=== PATIENT | female | born 1945 | race Caucasian/White ===

== ENCOUNTER → 2016-11-23 | Outpatient (CLI) | payer OTHER, MEDICARE ==
[~2016-11-23] MED LIST: IOPAMIDOL (ISOVUE-370) 150 ML BTL IV ONE
--- NOTE | 2016-11-23 23:18 | CT ---
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 History of aortic valve replacement and replacement of aortic root three years ago. TECHNIQUE: The patient received 90 mL of Isovue-370 intravenously, given by automated power machine injector. Multidetector helical CT was performed through the chest using dose reduction technology. I manipulated imaging data at the independent 3D computer workstation, and transferred angiographic images to PACS. Comparison: Compare CT pulmonary arteriogram of December 24, 2007. Findings: Right atrium is severely enlarged, worse than before. Contrast refluxes down the inferior vena cava into the hepatic veins. Right ventricle and left atrium are mildly enlarged. The left ve ntricle is normal in size. Metallic ring from prosthetic aortic valve is noted. The ascending aorta has been replaced and is now normal in size. The aortic arch and descending aorta are normal in siz e. 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 A mild diver ticulum of Ariesll measures 1.8 cm x 2.1 cm at the origin from the aorta. Pulmonary artery is norm al in size. Multiple wire sutures are found in the sternum. IMPRESSIONS 1. Surgical replacement of previously aneurysmal ascending aorta. Replaced aortic valve. 2. Severe dilatation of right atrium, compatible with tricuspid insufficiency. 3. Mild enlargement of left atrium and right ventricle. 4. 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
== END ==
LOC: FIMAGING 14:02
PROVIDERS: ATTEND Thoracic Surgery (Cardiothoracic Vascular Surgery)
DX: I07.1 Rheumatic tricuspid insufficiency (principal); I51.7 Cardiomegaly; I71.2 Thoracic aortic aneurysm, without rupture; Z95.2 Presence of prosthetic heart valve
CPT/HCPCS: 71275; Q9967

== ENCOUNTER 2016-12-16 07:55 | Inpatient (IN) | payer OTHER, MEDICARE ==
[2016-12-15 13:10] LABS: % IMMATURE GRANULYOCYTES 0.5 % (0.0-1.1); ABSOLUTE IMMATURE GRANULOCYTES 0.03 10^3/uL (0.00-0.10); ADD DIFF? NO; ADD MORPH? NO; ADD SCAN? NO; ATYPICAL LYMPHOCYTE FLAG 20 (0-99); FRAGMENT RBC FLAG 0 (0-99); HEMATOCRIT 45.7 % (38.0-47.0); HEMOGLOBIN 14.7 g/dL (12.6-16.3); LEFT SHIFT FLG 0 (0-99); LIPEMIA HEMOLYSIS FLAG 80 (0-99); MEAN CELL HEMOGLOBIN 26.9 pg (27.9-34.1); MEAN CELL HEMOGLOBIN CONCENTR. 32.2 g/dL (32.4-36.7); MEAN CELL VOLUME 83.5 fL (81.5-99.8); MEAN PLATELET VOLUME 11.1 fL (8.7-11.7); PLATELET CLUMPS FLAG 0 (0-99); PLATELET COUNT 250 10^3/uL (150-400); RED BLOOD CELL COUNT 5.47 10^6/uL (4.18-5.33); RED CELL DISTRIBUTION WIDTH 14.5 % (11.5-15.2)
[2016-12-15 13:31] LABS: ANION GAP 9 mEq/L (8-16); CALCIUM 9.7 mg/dL (8.5-10.4); CARBON DIOXIDE 26 mEq/l (22-31); CHLORIDE 107 mEq/L (97-110); CREATININE 0.6 mg/dL (0.6-1.0); GLOMERULAR FILTRATION RATE > 60; GLUCOSE 99 mg/dL (70-100); POTASSIUM 5.1 mEq/L (3.5-5.2); SODIUM 142 mEq/L (134-144)
[2016-12-15 13:45] LABS: HEMOGLOBIN A1C 6.3 % (4.0-6.0)
[2016-12-16] MEDS ORDERED: diphenhydrAMINE 25 MG CAP PO ONE ×2 (08:22→08:38)
[2016-12-16] MEDS ORDERED: DIAZEPAM 5 MG TAB PO ONE (08:22)
[2016-12-16] MEDS ORDERED: ASPIRIN EC 325 MG TAB PO ONE ×2 (08:22→08:39)
[2016-12-16] MEDS ORDERED: NS 1,000 ML IV ONE (08:22)
[2016-12-16] MEDS ORDERED: FAMOTIDINE 20 MG TAB PO ONE (08:22)
--- NOTE | 2016-12-16 08:32 | CPEKG ---
Heart Rate: 54 RR Interval: 1111 P-R Interval: 144 QRSD Interval: 96 QT Interval: 444 QTC Interval: 421 P [place]: 45 QRS [place]: 54 T Wave [place]: 26 EKG Severity - NORMAL ECG - EKG Impression: SINUS RHYTHM Electronically Signed By: Cullen Gee 16-Dec-2016 14:46:14
[2016-12-16] MEDS ORDERED: FAMOTIDINE 20 MG TAB ONE (08:38)
[2016-12-16] MEDS ORDERED: DIAZEPAM 5 MG TAB ONE (08:39)
[2016-12-16 08:54] LABS: % IMMATURE GRANULYOCYTES 0.5 % (0.0-1.1); ABSOLUTE IMMATURE GRANULOCYTES 0.03 10^3/uL (0.00-0.10); ADD DIFF? NO; ADD MORPH? NO; ADD SCAN? NO; ATYPICAL LYMPHOCYTE FLAG 10 (0-99); FRAGMENT RBC FLAG 0 (0-99); HEMATOCRIT 44.1 % (38.0-47.0); HEMOGLOBIN 14.4 g/dL (12.6-16.3); LEFT SHIFT FLG 0 (0-99); LIPEMIA HEMOLYSIS FLAG 80 (0-99); MEAN CELL HEMOGLOBIN 27.5 pg (27.9-34.1); MEAN CELL HEMOGLOBIN CONCENTR. 32.7 g/dL (32.4-36.7); MEAN CELL VOLUME 84.3 fL (81.5-99.8); MEAN PLATELET VOLUME 10.8 fL (8.7-11.7); PLATELET CLUMPS FLAG 0 (0-99); PLATELET COUNT 234 10^3/uL (150-400); RED BLOOD CELL COUNT 5.23 10^6/uL (4.18-5.33); RED CELL DISTRIBUTION WIDTH 14.3 % (11.5-15.2)
[2016-12-16] MEDS ORDERED: LIDOCAINE 1% 30 ML SDV ONE (09:14)
[2016-12-16 09:15] LABS: ANION GAP 8 mEq/L (8-16); CALCIUM 9.4 mg/dL (8.5-10.4); CARBON DIOXIDE 24 mEq/l (22-31); CHLORIDE 109 mEq/L (97-110); CHOLESTEROL 213 mg/dL (140-220); CHOLESTEROL/HDL RATIO 4.44 RATIO (1.00-4.44); CREATININE 0.6 mg/dL (0.6-1.0); GLOMERULAR FILTRATION RATE > 60; GLUCOSE 109 mg/dL (70-100); HIGH DENSITY LIPOPROTEIN 48 mg/dL (40-85); LOW DENSITY LIPOPROTEIN 144 mg/dL (80-100); MAGNESIUM 1.9 mg/dL (1.6-2.3); NON-HIGH DENSITY LIPOPROTEIN 165 mg/dL (90-129); POTASSIUM 4.3 mEq/L (3.5-5.2); SODIUM 141 mEq/L (134-144); TRIGLYCERIDE 106 mg/dL (35-135); VERY LOW DENSITY LIPOPROTEINS 21 mg/dL (8-25)
[2016-12-16] MEDS ORDERED: VERAPAMIL 5 MG/2 ML VIAL ONE (09:15)
[2016-12-16] MEDS ORDERED: fentaNYL 100 MCG/2 ML INJ ONE ×3 (09:15→15:42)
[2016-12-16] MEDS ORDERED: HEPARIN 10,000 UNIT/10 ML MDV ONE (09:15)
[2016-12-16] MEDS ORDERED: IOPAMIDOL (ISOVUE-370) 150 ML BTL IV ONE (09:15)
[2016-12-16] MEDS ORDERED: MIDAZOLAM 2 MG/2 ML VIAL ONE ×2 (09:15→11:07)
[2016-12-16 09:19] LABS: INR 2.14 (0.83-1.16); PROTIME(PATIENT) 24.1 SEC (12.0-15.0)
[2016-12-16] MEDS ORDERED: NITROGLYCERIN 0.4 MG BTL SL PRN (11:37)
[2016-12-16] MEDS ORDERED: OXYCODONE/APAP 5/325 TAB PO PRN (11:37)
[2016-12-16] MEDS ORDERED: ATROPINE SULFATE 1 MG/10 ML SYR IVP PRN (11:37)
[2016-12-16] MEDS ORDERED: ONDANSETRON 4 MG/2 ML VIAL IVP PRN (11:37)
[2016-12-16] MEDS ORDERED: HYDROCODONE/APAP 5/325 TAB PO PRN (11:37)
[2016-12-16] MEDS ORDERED: PHYTONADIONE 2.5 MG/2.5 ML ORAL UDL PO ONE (11:39)
--- NOTE | 2016-12-16 11:44 | PDDXCAT ---
Diagnostic Cath Note - . Date: 12/16/16 Cephalometric Tracer: Roldan - Procedure Access: right groin Procedure: left heart catheterization, coronary angiography, other (aortagram) - Materials Left Heart Cath size: 5F Left Heart Cath materials: standard multipack (JL4, JR4, pigtail) - Findings-Left Heart Catheterization LM: normal LAD: normal LCX: dominant: Normal RCA: Non: dominant normal - Findings-Right Heart Catheterization AO: Aortagram: step up with graft. No AI. Complications: Right and left radial artery spasm. Closure method: other (TR band bilateral radial artery. Angioseal right groin.) Assessment: Normal Cors Patient Problems: Problems Problem Status Diagnosed Atrial flutter Acute
[2016-12-16 13:10] LABS: HEMOGLOBIN A1C 6.1 % (4.0-6.0)
--- NOTE | 2016-12-16 15:05 | US ---
Bilateral Duplex/Doppler Carotid Sonography Clinical Indications: Preop open heart surgery. Technique: The cervical portions of the carotid and vertebral arteries were imaged and interrogated by color and pulsed Duplex/Doppler. Spectral analysis was performed. Findings: Right Carotid: Right CCA peak systolic velocity = 34 cm/sec Right ICA peak systolic velocity = 71 cm/sec Right ECA peak systolic velocity = 35 cm/sec Right ICA/CCA systolic velocity ratio = 2.0 No flow-limiting carotid stenosis. Mild calcified plaque involving the right carotid bulb and proxima l right internal carotid artery. Left Carotid: Left CCA peak systolic velocity = 45 cm/sec Left ICA peak systolic velocity = 93 cm/sec Left ECA peak systolic velocity = 25 cm/sec Left ICA/CCA systolic velocity ratio = 2.0 No flow-limiting carotid stenosis. Mild calcified plaque involving the left carotid bulb and proximal left internal carotid artery. Vertebral Arteries: Antegrade flow is shown by pulsed Doppler of each vertebral artery. Impression: 1. No evidence of flow-limiting carotid stenosis. 2. Mild atherosclerotic disease bilateral carotid bulbs. 3. Bilateral vertebral arteries are patent with antegrade flow. Measurement of carotid stenosis is based on velocity parameters that correlate the residual internal carotid diameter with [place] Symptomatic Carotid Endarterectomy Trial (NASCET) based stenosis levels.
--- NOTE | 2016-12-16 18:45 | DX ---
Chest, PA and Lateral Views, at 6:10 PM Clinical History: 70-year-old female with history of an aortic valve replacement and aortic root 3 ye ars ago for a thoracic aortic aneurysm and a history of rheumatic and mitral valve tricuspid insuffic iency. The patient is presenting preoperatively before heart surgery anticipated on 12/21/2016. Comparison Study: Report of CT imaging of the chest, and chest radiography dated 05/05/2008. Findings: Again noted are median sternotomy wires and an aortic valvuloplasty. The cardiac silhouette remains enlarged, and there is tortuosity of the aorta. There is no focal alveolar consolidation, pe ripheral interstitial edema, pneumothorax, or pleural effusion. The patient's arms obscure the anteri or and central mediastinal structures on the lateral view. There are some degenerative features of th e spine. Impression: Postoperative changes following prior aortic valvuloplasty with mild cardiomegaly and tho racic aortic tortuosity. There is no focal infiltrate, or evidence of congestive heart failure.
[2016-12-21] MEDS ORDERED: AMINOCAPROIC ACID 5 GM/20 ML VIAL IV ONE (06:00)
[2016-12-21] MEDS ORDERED: LIDOCAINE 1% 5 ML SDV ID PRN ×2 (06:00→07:42)
[2016-12-21] MEDS ORDERED: PHENYLEPHRINE HCL 50 MG in NS 250 ML IV ONE (06:00)
[2016-12-21] MEDS ORDERED: INSULIN REGULAR HUMAN 100 UNIT in NS 100 ML IV ONE (06:00)
[2016-12-21] MEDS ORDERED: ceFAZolin 2 GM/DEXTROSE 100 ML IV ONE (06:00)
[2016-12-21] MEDS ORDERED: NOREPINEPHRINE BITARTRATE 16 MG in NS 250 ML IV ONE (06:00)
[2016-12-21] MEDS ORDERED: NS 1,000 ML IV ONE (06:00)
[2016-12-21] MEDS ORDERED: CITRATE DEXTROSE SOLN 500 ML BAG MISC ONE (06:00)
[2016-12-21] MEDS ORDERED: MUPIROCIN 2% 22 GM OINT NS ONE (06:00)
[2016-12-21] MEDS ORDERED: niCARdipine/NACL 200 ML IV SCH (06:00)
[2016-12-21] MEDS ORDERED: SODIUM BICARBONATE 20 MEQ, LIDOCAINE 1% 10 ML in NORMOSOL-R 1,000 ML MISC ONE (06:00)
[2016-12-21] MEDS ORDERED: DOBUTamine/DEXTROSE 250 ML IV ONE (06:00)
[2016-12-21] MEDS ORDERED: DOBUTamine 500 MG in D5W 250 ML IV ONE (06:00)
[2016-12-21] MEDS ORDERED: MANNITOL 25% 12.5 GM/50 ML VIAL IV ONE (06:00)
[2016-12-21] MEDS ORDERED: CITRATE DEXTROSE SOLN 500 ML BAG ONE (06:49)
[2016-12-21] MEDS ORDERED: CALCIUM CHLORIDE 1 GM/10 ML INJ ONE (06:49)
[2016-12-21] MEDS ORDERED: ALBUMIN 5% 250 ML BOTTLE IV ONE (06:49)
[2016-12-21] MEDS ORDERED: PROTAMINE SULFATE 50 MG/5 ML VIAL IVP ONE (06:49)
[2016-12-21] MEDS ORDERED: POTASSIUM Cl (KCl) 20 MEQ/50 ML BAG IV ONE (06:50)
[2016-12-21] MEDS ORDERED: NA BICARBONATE 50 MEQ/50 ML VIAL ONE (06:50)
[2016-12-21] MEDS ORDERED: AMINOCAPROIC ACID 5 GM/20 ML VIAL ONE (06:50)
[2016-12-21] MEDS ORDERED: MILRINONE/DEXTROSE/100 ML BAG IV ONE (06:50)
[2016-12-21] MEDS ORDERED: DOPamine/DEXTROSE/250 ML BAG IV ONE (06:51)
[2016-12-21] MEDS ORDERED: LIDOCAINE 2% 100 MG/5 ML SYR IVP ONE (06:51)
[2016-12-21] MEDS ORDERED: ROCURONIUM 100 MG/10 ML VIAL ONE ×2 (06:51→10:27)
[2016-12-21] MEDS ORDERED: PHENYLEPHRINE 10 MG/ML SDV ONE (06:51)
[2016-12-21] MEDS ORDERED: ADENOSINE 6 MG/2 ML VIAL ONE (06:51)
[2016-12-21] MEDS ORDERED: methylPREDNISolone SOD SUCC 1 GM/8 ML VIAL ONE (06:51)
[2016-12-21] MEDS ORDERED: niCARdipine/NACL/200 ML BAG IV ONE (06:51)
[2016-12-21] MEDS ORDERED: MAGNESIUM SULFATE 1 GM/2 ML VIAL ONE (06:51)
[2016-12-21] MEDS ORDERED: AMIODARONE HCL 150 MG/3 ML VIAL ONE (06:51)
[2016-12-21] MEDS ORDERED: ceFAZolin 1 GM VIAL ONE (06:52)
[2016-12-21] MEDS ORDERED: HEPARIN 10,000 UNIT/10 ML MDV ONE (06:52)
[2016-12-21] MEDS ORDERED: fentaNYL 250 MCG/5 ML INJ ONE ×3 (06:57→10:18)
[2016-12-21] MEDS ORDERED: PROPOFOL 200 MG/20 ML VIAL ONE (06:59)
--- NOTE | 2016-12-21 07:04 | PDGENHP ---
History and Physical - Chief Complaint Severe TR/MR/Persistent AF - History of Present Illness 71F with h/o AVR and ascending aorta repair with severe MR, severe TR and persistent AF. Pt admits to SOB upon exertion and has limited her activity to avoid symptoms. Since last seen in clinic symptoms have not worsened. History Information - Allergies/Home Medication List Allergies/Adverse Reactions: No Known Allergies Allergy (Verified 12/05/16 12:51) Home Medications: ALPRAZOLAM [ALPRAZOLAM] 0.25 mg PO DAILY PRN 12/16/16 [Last Taken 12/15/16] Aspirin EC [Aspirin EC 81 mg (*)] 81 mg PO DAILY 12/16/16 [Last Taken 12/20/16 09:00] Atenolol [Atenolol] 12.5 mg PO HS 12/16/16 [Last Taken 12/19/16] Atenolol [Atenolol] 25 mg PO DAILY 12/16/16 [Last Taken 12/20/16 09:00] Escitalopram Oxalate [Lexapro] 10 mg PO DAILY 12/16/16 [Last Taken 12/20/16 09: 00] Losartan Potassium [Cozaar 50 mg (*)] 50 mg PO DAILY 12/16/16 [Last Taken ] Warfarin Sodium [Coumadin 2.5MG (*)] 2.5 mg PO SUTUTHFR@16 12/16/16 [Last Taken 12/17/16] Warfarin Sodium [Coumadin 5MG (*)] 5 mg PO MWF@16 12/16/16 [Last Taken 12/16/16] I have personally reviewed and updated: medical history, social history, surgical history - Past Medical History atrial fibrillation, hypertension Additional medical history: MR, TR, BAV (s/p replacement 2007), cardioversions - Surgical History Additional surgical history: AVR/ascending aortic repair (2007) - Social History Smoking Status: Former smoker Review of Systems Constitutional: Denies: chills, fever, recent illness Cardiac: Reports: palpitations. Denies: chest pain Respiratory: Reports: shortness of breath Gastrointestinal: Denies: vomitting, nausea Skin: Reports: no symptoms Neurological: Reports: anxiety Physical Exam Constitutional: no apparent distress, appears nourished, not in pain Eyes: anicteric sclera Ears, Nose, Mouth, Throat: hearing normal Cardiovascular: regular rate and rhythym, irregularly irregular Respiratory: no respiratory distress, clear to auscultation Gastrointestinal: soft, non-tender abdomen, tenderness Skin: warm, normal color, No mottled Neurologic: AAOx3, sensation intact bilaterally Psychiatric: interacting appropriately, not anxious, not encephalopathic, thought process linear Lab Data & Imaging Review 12/22/16 03:45 12/22/16 03:45 WBC 6.26 10^3/uL (3.80-9.50) 12/16/16 08:45 RBC 5.23 10^6/uL (4.18-5.33) 12/16/16 08:45 Hgb 14.4 g/dL (12.6-16.3) 12/16/16 08:45 Hct 44.1 % (38.0-47.0) 12/16/16 08:45 MCV 84.3 fL (81.5-99.8) 12/16/16 08:45 MCH 27.5 pg (27.9-34.1) L 12/16/16 08:45 MCHC 32.7 g/dL (32.4-36.7) 12/16/16 08:45 RDW 14.3 % (11.5-15.2) 12/16/16 08:45 Plt Count 234 10^3/uL (150-400) 12/16/16 08:45 MPV 10.8 fL (8.7-11.7) 12/16/16 08:45 Neut % (Auto) 64.3 % (39.3-74.2) 12/16/16 08:45 Lymph % (Auto) 22.8 % (15.0-45.0) 12/16/16 08:45 Crockett % (Auto) 9.6 % (4.5-13.0) 12/16/16 08:45 Eos % (Auto) 2.2 % (0.6-7.6) 12/16/16 08:45 Baso % (Auto) 0.6 % (0.3-1.7) 12/16/16 08:45 Nucleat RBC Rel Count 0.0 % (0.0-0.2) 12/16/16 08:45 Absolute Neuts (auto) 4.02 10^3/uL (1.70-6.50) 12/16/16 08:45 Absolute Lymphs (auto) 1.43 10^3/uL (1.00-3.00) 12/16/16 08:45 Absolute Monos (auto) 0.60 10^3/uL (0.30-0.80) 12/16/16 08:45 Absolute Eos (auto) 0.14 10^3/uL (0.03-0.40) 12/16/16 08:45 Absolute Basos (auto) 0.04 10^3/uL (0.02-0.10) 12/16/16 08:45 Absolute Nucleated RBC 0.00 10^3/uL (0-0.01) 12/16/16 08:45 Immature Gran % 0.5 % (0.0-1.1) 12/16/16 08:45 Immature Gran # 0.03 10^3/uL (0.00-0.10) 12/16/16 08:45 PT 24.1 SEC (12.0-15.0) H 12/16/16 08:45 INR 2.14 (0.83-1.16) H 12/16/16 08:45 Sodium 141 mEq/L (134-144) 12/16/16 08:45 Potassium 4.3 mEq/L (3.5-5.2) 12/16/16 08:45 Chloride 109 mEq/L (97-110) 12/16/16 08:45 Carbon Dioxide 24 mEq/l (22-31) 12/16/16 08:45 Anion Gap 8 mEq/L (8-16) 12/16/16 08:45 BUN 22 mg/dL (7-23) 12/16/16 08:45 Creatinine 0.6 mg/dL (0.6-1.0) 12/16/16 08:45 Estimated GFR > 60 12/16/16 08:45 Glucose 109 mg/dL (70-100) H 12/16/16 08:45 Hemoglobin A1c 6.1 % (4.0-6.0) H 12/16/16 08:45 Estim Average Glucose 128 mg/dL (68-126) H 12/16/16 08:45 Calcium 9.4 mg/dL (8.5-10.4) 12/16/16 08:45 Magnesium 1.9 mg/dL (1.6-2.3) 12/16/16 08:45 Triglycerides 106 mg/dL (35-135) 12/16/16 08:45 Cholesterol 213 mg/dL (140-220) 12/16/16 08:45 Cholesterol Risk Factr 1.0 (0.2-1.0) 12/16/16 08:45 LDL Cholesterol, Calc 144 mg/dL (80-100) H 12/16/16 08:45 LDL Risk Factor 1.0 (0.2-1.0) 12/16/16 08:45 VLDL Cholesterol 21 mg/dL (8-25) 12/16/16 08:45 Non-HDL Cholesterol 165 mg/dL (90-129) H 12/16/16 08:45 HDL Cholesterol 48 mg/dL (40-85) 12/16/16 08:45 LDL/HDL Ratio 3.00 RATIO (1.00-3.22) 12/16/16 08:45 Cholesterol/HDL Ratio 4.44 RATIO (1.00-4.44) 12/16/16 08:45 Patient ABO/Rh A NEGATIVE 12/16/16 11:20 Antibody Screen NEGATIVE 12/16/16 11:20 Visualized and Interpreted Chest x-ray results: Yes Chest X-Ray results: normal Assessment & Plan Assessment: MR/TR/PAF - MVR/TVR/CM 4
[2016-12-21] MEDS ORDERED: SKIN ADHESIVE (DERMABOND) 1 EACH TP ONE (07:10)
[2016-12-21] MEDS ORDERED: LR 1,000 ML IV ONE (07:42)
[2016-12-21] MEDS ORDERED: MIDAZOLAM 2 MG/2 ML VIAL ONE ×2 (07:48→07:51)
[2016-12-21 08:22] LABS: INR 1.1 (0.83-1.16); PROTIME(PATIENT) 14.1 SEC (12.0-15.0)
[2016-12-21] MEDS ORDERED: LABETALOL HCL 5 MG/ML 20 ML MDV ONE (10:03)
[2016-12-21] MEDS ORDERED: hydrALAZINE 20 MG/ML VIAL ONE (10:20)
[2016-12-21] MEDS ORDERED: epHEDrine SULFATE 10 MG/ML SYR ONE ×2 (10:31→11:15)
[2016-12-21] MEDS ORDERED: MINERAL OIL 10 ML VIAL TP ONE (15:23)
[2016-12-21] MEDS ORDERED: SUGAMMADEX SODIUM 200 MG/2 ML VIAL IVP ONE (15:57)
[2016-12-21] MEDS ORDERED: morphINE PF 5 MG/10 ML INJ ONE (15:57)
[2016-12-21] MEDS ORDERED: MAGNESIUM HYDROXIDE 30 ML UDCUP PO PRN (16:00)
[2016-12-21] MEDS ORDERED: ONDANSETRON DISINTEGRATING 4 MG TAB PO PRN (16:00)
[2016-12-21] MEDS ORDERED: LACTULOSE 20 GM/30 ML UDCUP PO PRN (16:00)
[2016-12-21] MEDS ORDERED: SODIUM CL NASAL 45 ML BTL EACHNARE PRN (16:00)
[2016-12-21] MEDS ORDERED: BISACODYL 10 MG SUPP PR PRN (16:00)
[2016-12-21] MEDS ORDERED: ALBUMIN 5% 250 ML IV PRN (16:00)
[2016-12-21] MEDS ORDERED: CEPACOL LOZENGE PO PRN (16:00)
[2016-12-21] MEDS ORDERED: INSULIN REGULAR HUMAN 100 UNIT in NS 100 ML IV SCH (16:00)
[2016-12-21] MEDS ORDERED: D50W 25 GM/50 ML SYR IVP PRN (16:00)
[2016-12-21] MEDS ORDERED: MAGNESIUM SULF 2 GM/WATER 50 ML IV ONE (16:00)
[2016-12-21] MEDS ORDERED: METOCLOPRAMIDE 10 MG/2 ML VIAL IVP PRN (16:00)
[2016-12-21] MEDS ORDERED: NS 1,000 ML IV SCH (16:00)
[2016-12-21] MEDS ORDERED: MEPERIDINE 25 MG/ML SYR IVP PRN (16:00)
[2016-12-21] MEDS ORDERED: ACETAMINOPHEN 650 MG SUPP PR PRN (16:00)
[2016-12-21 16:53] LABS: BASE EXCESS -5.2 mEq/L (-2.5-2.5); BICARBONATE 21 mEq/L (22-26); MEASURED OXYGEN SATURATION 87 % (92-95); PCO2 44 mmHg (34-38); PO2 59 mmHg (65-75); TCO2 22 mEq/L (23-27)
[2016-12-21 16:58] LABS: O2 CONCENTRATIION 94 % (0-100); P/F RATIO 63 RATIO
[2016-12-21] MEDS ORDERED: KETOROLAC 30 MG/1 ML SDV IVP ONE (17:00)
[2016-12-21] MEDS: POTASSIUM Cl (KCl) 50 ML IV PRN ×2 (17:07→17:35)
[2016-12-21 17:16] LABS: ADD DIFF? YES; ADD MORPH? NO; ADD SCAN? NO; ATYPICAL LYMPHOCYTE FLAG 0 (0-99); FRAGMENT RBC FLAG 20 (0-99); HEMATOCRIT 36.7 % (38.0-47.0); HEMOGLOBIN 12.1 g/dL (12.6-16.3); LEFT SHIFT FLG 80 (0-99); LIPEMIA HEMOLYSIS FLAG 80 (0-99); MEAN CELL HEMOGLOBIN 28.5 pg (27.9-34.1); MEAN CELL VOLUME 86.4 fL (81.5-99.8); MEAN PLATELET VOLUME 11.3 fL (8.7-11.7); PLATELET CLUMPS FLAG 0 (0-99); PLATELET COUNT 77 10^3/uL (150-400); RED BLOOD CELL COUNT 4.25 10^6/uL (4.18-5.33); RED CELL DISTRIBUTION WIDTH 14.5 % (11.5-15.2)
[2016-12-21 17:51] LABS: PLATELET ESTIMATE DECREASED (ADEQ)
[2016-12-21 17:54] LABS: ELLIPTOCYTES 1+; POLYCHROMASIA 1+
--- NOTE | 2016-12-21 17:54 | CPEKG ---
Heart Rate: 80 RR Interval: 750 P-R Interval: 204 QRSD Interval: 88 QT Interval: 396 QTC Interval: 457 QRS [place]: 53 T Wave [place]: 53 EKG Severity - ABNORMAL ECG - EKG Impression: ATRIAL-PACED RHYTHM Electronically Signed By: Cleveland Kay 21-Dec-2016 19:53:43
[2016-12-21] MEDS: fentaNYL 100 MCG/2 ML INJ IVP PRN ×3 (20:46→22:20)
[2016-12-21] MEDS: MUPIROCIN 2% 22 GM OINT NS SCH (21:15)
[2016-12-21] MEDS: ceFAZolin 2 GM in D5W 100 ML IV SCH (21:56)
[2016-12-21] MEDS ORDERED: ceFAZolin 2 GM/DEXTROSE 100 ML IV SCH (22:00)
[2016-12-21] MEDS: ONDANSETRON 4 MG/2 ML VIAL IVP PRN (22:14)
[2016-12-21] MEDS: KETOROLAC 15 MG/1 ML SDV IVP SCH (22:50)
[2016-12-22] MEDS: fentaNYL 100 MCG/2 ML INJ IVP PRN ×2 (00:47→02:12)
[2016-12-22] MEDS: HYDROCODONE/APAP 5/325 TAB PO PRN ×6 (03:51→22:35)
[2016-12-22 04:02] LABS: ANION GAP 7 mEq/L (8-16); CALCIUM 7.8 mg/dL (8.5-10.4); CARBON DIOXIDE 23 mEq/l (22-31); CHLORIDE 118 mEq/L (97-110); CREATININE 0.6 mg/dL (0.6-1.0); GLOMERULAR FILTRATION RATE > 60; GLUCOSE 112 mg/dL (70-100); POTASSIUM 3.7 mEq/L (3.5-5.2); SODIUM 148 mEq/L (134-144)
[2016-12-22 04:03] LABS: % IMMATURE GRANULYOCYTES 0.9 % (0.0-1.1); ABSOLUTE IMMATURE GRANULOCYTES 0.15 10^3/uL (0.00-0.10); ADD DIFF? NO; ADD MORPH? NO; ADD SCAN? NO; ATYPICAL LYMPHOCYTE FLAG 0 (0-99); FRAGMENT RBC FLAG 0 (0-99); HEMATOCRIT 31.9 % (38.0-47.0); HEMOGLOBIN 10.3 g/dL (12.6-16.3); LEFT SHIFT FLG 50 (0-99); LIPEMIA HEMOLYSIS FLAG 80 (0-99); MEAN CELL HEMOGLOBIN 27.3 pg (27.9-34.1); MEAN CELL HEMOGLOBIN CONCENTR. 32.3 g/dL (32.4-36.7); MEAN CELL VOLUME 84.6 fL (81.5-99.8); MEAN PLATELET VOLUME 10.9 fL (8.7-11.7); PLATELET CLUMPS FLAG 0 (0-99); PLATELET COUNT 55 10^3/uL (150-400); RED BLOOD CELL COUNT 3.77 10^6/uL (4.18-5.33); RED CELL DISTRIBUTION WIDTH 15.2 % (11.5-15.2)
[2016-12-22] MEDS: POTASSIUM Cl (KCl) 50 ML IV PRN ×2 (04:17→04:52)
[2016-12-22 04:18] LABS: INR 1.57 (0.83-1.16); PROTIME(PATIENT) 18.8 SEC (12.0-15.0)
[2016-12-22] MEDS: KETOROLAC 15 MG/1 ML SDV IVP SCH ×4 (04:28→22:34)
[2016-12-22] MEDS: ceFAZolin 2 GM in D5W 100 ML IV SCH ×3 (04:55→22:35)
[2016-12-22] MEDS ORDERED: HEPARIN 5,000 UNIT/0.5 ML SYR SC SCH (06:00)
--- NOTE | 2016-12-22 07:14 | SOAPPROG ---
SOAP Progress Note Assessment/Plan: POD #1: Reoperation MV replacement, TV repair, Aguiar-Maze IV Severe MR/TR s/p MV replacement/TV repair. Weaned from CPB on dobutamine without need for blood product transfusions. A-paced due to slow JR. - CTs to bulb suction - d/c FC/AL - SQ heparin for DVT prophylaxis once platelets recover to 100 - BB contraindicated d/t rhythm issues - OOB/ambulation Long standing persistent AF s/p Aguiar-Maze IV - Continue AP for slow JR. Possible PPM insertion this admission if no resolution. Ok for PCU status but pt must stay in ICU for external pacer management. - Plan for Coumadin goal 2-3 once PPM plan determined Acute blood loss anemia - No blood transfusions required - Monitor H/H, CT output h/o remote bioprosthetic AVR with ascending aortic replacement - Stable Anxiety/depression - Continue home meds 12/22/16 08:59 Subjective: Thirsty. Pain well-controlled. No N/V/abdominal pain. Objective: Vital Signs Temp Pulse Resp BP Pulse Ox 36.7 C 80 17 107/72 97 12/22/16 06:00 12/22/16 06:00 12/22/16 06:00 12/22/16 06:00 12/22/16 06:00 Laboratory Results 12/22/16 03:45 12/22/16 03:45 12/21/16 12/22/16 12/23/16 05:59 05:59 05:59 Intake Total 1303 Output Total 2470 Balance -1167 PT 18.8 SEC (12.0-15.0) H 12/22/16 03:45 INR 1.57 (0.83-1.16) H 12/22/16 03:45 Physical Exam - Physical Exam General Appearance: WD/WN, alert, no apparent distress EENT: No scleral icterus (R), No scleral icterus (L) Neck: normal inspection Respiratory: lungs clear, normal breath sounds Cardiac/Chest: other (A-paced d/t JR) Abdomen: non-tender, soft, No distended Skin: normal color, warm/dry Extremities: No pedal edema Neuro/Psych: no motor/sensory deficits, alert, normal mood/affect, oriented x 3 ICD10 Worksheet Patient Problems: Problems Problem Status Onset Atrial flutter Acute
[2016-12-22] MEDS: MUPIROCIN 2% 22 GM OINT NS SCH ×2 (08:43→23:05)
[2016-12-22] MEDS: ASPIRIN EC 81 MG TAB PO SCH (08:43)
[2016-12-22] MEDS: ESCITALOPRAM OXALATE 10 MG TAB PO SCH (08:43)
--- NOTE | 2016-12-22 12:42 | GOP ---
[f rep st] OPERATIVE REPORT DATE OF OPERATION: 12/21/2016 SURGEON: Moi Carl DO PREOPERATIVE DIAGNOSIS: 1. Class 3 congestive heart failure with severe mitral insufficiency, severe tricuspid insufficienc y. 2. Persistent atrial fibrillation. 3. Status post previous aortic root replacement with a bioprosthetic root. POSTOPERATIVE DIAGNOSIS: 1. Class 3 congestive heart failure with severe mitral insufficiency, severe tricuspid insufficienc y. 2. Persistent atrial fibrillation. 3. Status post previous aortic root replacement with a bioprosthetic root. PROCEDURE PERFORMED: 1. Left common femoral artery cannulation with subsequent primary repair. 2. Reoperation, mitral valve replacement with a #25 Magna bioprosthesis. 3. Tricuspid valve annuloplasty with a #34 Purvis annuloplasty ring. 4. Complete left and right Aguiar maze procedure with radiofrequency and cryoablation with testing. FINDINGS: DESCRIPTION OF PROCEDURE: The patient was consented for symptomatic mitral and tricuspid insufficie ncy with worsening dyspnea on exertion and class 3 congestive heart failure symptoms. She had had a n aortic root performed with a magna valve inside a conduit for aortic aneurysm and bicuspid aortic valve. She was consented for surgery, brought to the operating room, intubated, and monitoring line s were placed in a sterile classical manner. Because the pericardium had not been closed from the p rior operation and she had marked right ventricular and right atrial enlargement which was adherent to the back of the sternum on CT, we elected to expose the left common femoral artery and vein. The y were excellent quality vessels without plaque. Pursestring sutures were placed in both vessels. We then proceeded to sternotomy with an oscillating saw, leaving the sternal wires on the posterior table for protection. We then removed the wires and gently the posterior plate. It becam e evident that the right ventricle was densely adherent to the back of the sternum, and any attempt to try to dissect it resulted in potential serious cardiac injury to the right ventricle. We then h eparinized the patient and cannulated the left common femoral artery with the Seldinger technique, u tilizing a 17-Slovenian cannula without difficulty over a guide wire which was visualized in the descen ding thoracic aorta on transesophageal echo. We then placed a wire into the common vein into the koo perior vena cava, and dilated the access sheath. However, the large dilation sheath met resistance at approximately 10 cm despite having the wire in place. I elected not to push it any harder and ca ncelled the common femoral vein cannulation, and closed that with a suture. I then decided to gentl y try to dissect the heart out, at least with arterial access, and we were able to safely dissect it without any RV injury, subsequently placing retractor. I then dissected out the entire right side and ascending aorta which had a graft which was densely adherent, taking our time utilizing cautery. We then also freed up the inferior wall as well as the coronary sinus to where we hoped to be able to perform cryoablation based on heart catheterization. Bicaval cannulations were placed with tape s, and antegrade cardioplegia catheter was placed. Cardiopulmonary bypass was begun. The aorta was cross clamped with antegrade cardioplegia and topical hypothermia as well as systemic cooling. Bef ore arresting the heart, I did test for GPs on the right side, and found 1 at approximately R9 which was ablated successfully. I was unable to do the left side due to the dense adhesions and reluctan ce to dissect out that side because of additional bleeding that would be encountered. I also tested for exit block and found that the right inferior pulmonary vein was conducting, although the middle and superior were not for no obvious reason. We then arrested the heart as stated, and opened the left atrium through the right superior pulmonary vein. I then cryoablated the remainder of the righ t PVI and then the entire left PVI as well as the dome and lesion with a sponge placed be hind the heart to prevent esophageal injury as well as pointing the KHADIJAH back. I then did the isthmu s lesion, connecting it with the right inferior pulmonary vein to my satisfaction. I also ablated i nto the atrial appendage from the right superior pulmonary vein, and then over sewed the appendage f rom the inside with a double-layer closure, being confident that it was occluded, avoiding circumfle x vessel. I then evaluated the mitral valve. It should be noted that the left atrial chamber was m arkedly enlarged of a chronic nature. It appeared to be a fibroelastic valve with ruptured chordae to the anterior leaflet. It was very friable tissue of poor quality and it was a relatively small v alve, also complicated by the fact that the aortic prosthesis made visualization of the lateral trig one extremely difficult. For that reason, I felt that the safest approach would be a chordal sparin g mitral valve replacement, utilizing part of the anterior leaflet as the anulus in a site that was difficult to visualize to try to prevent any sort of perivalvular leak. Again, visualization there was extremely hard because of the large size of her heart. I was able to place circumferential sutu res, preserving the anterior leaflet at 3 and 9 o'clock, and placed a 25 mm valve which was actually quite tight fit, but I thought an appropriate size for her. It was seated without difficulty. Anuja ting distention of the ventricle revealed no obvious perivalvular leak. Rewarming was begun while t he left atrium was closed. It should be noted CO2 was infused throughout the procedure. I then vasquez alejandro the patient in deep Trendelenburg after de-airing the ventricle and atrium as much as I could fr om that site, and then removed the cross-clamp with suction on the ascending aortic vent. Spontaneo us cardiac activity was noted to resume. We secured the caval tapes and opened the right atrium in a vertical fashion as part of a Aguiar IV, and completed the isthmus lesion utilizing cryoablation to a pproximately 2 o'clock, connecting it to the free wall lesion. We then did a free wall ablation, st aying high away from the sinus node, connecting that to the appendage. We also did superior and inf erior vena caval ablations, staying well away from the sinus node on the posterior wall of the super ior vena cava. I then placed retractors and put circumferential sutures in the tricuspid anulus. I t was markedly dilated and had severe regurgitation with distention with saline. I then sized the p atient for a 34 ring which was sutured in place with cor knots without difficulty. There was still some regurgitation at the commissure of the 2 leaflets, which I approximated with a sort of stitch because of prolapse of that area close to the anulus. This eliminated the majority of any regurgitation being almost nil with distention of the right ventricle. The right atrium was closed while the heart continued to beat. I placed a and V wires, and atrial paced the patient. We then watched the patient for air, de-airing through the aortic vent and ventilating, distending the heart and stabbing the apex with an 18-gauge needle. When no further air was identified, the patient was easily weaned from bypass. The mitral valve was well seated. There was central regurgitation cons istent with a pericardial valve, but trace perivalvular needle holes type bleeding only, but no sign ificant perivalvular leakage noted with magnification as well. The patient was then weaned from byp ass. The heparin was reversed with protamine. All bleeding sites were controlled. One mediastinal and 2 pleural tubes were placed. There was no thymic fat or pericardium remaining. The chest was closed in a standard fashion. The left common femoral artery cannula had been removed and oversewn. She had Doppler pulses in the foot. All wounds were closed in a standard fashion. She was return ed to ICU extubated, in stable condition. /[id number]/MODL
[2016-12-22] MEDS: ONDANSETRON 4 MG/2 ML VIAL IVP PRN (15:55)
[2016-12-22] MEDS: SENNOSIDES/DOCUSATE SODIUM TAB PO SCH (20:28)
[2016-12-23 04:45] LABS: INR 1.28 (0.83-1.16)
[2016-12-23 04:54] LABS: % IMMATURE GRANULYOCYTES 0.6 % (0.0-1.1); ABSOLUTE IMMATURE GRANULOCYTES 0.12 10^3/uL (0.00-0.10); ADD DIFF? NO; ADD MORPH? NO; ADD SCAN? NO; ATYPICAL LYMPHOCYTE FLAG 0 (0-99); FRAGMENT RBC FLAG 0 (0-99); HEMATOCRIT 26.9 % (38.0-47.0); HEMOGLOBIN 8.7 g/dL (12.6-16.3); LEFT SHIFT FLG 20 (0-99); LIPEMIA HEMOLYSIS FLAG 80 (0-99); MEAN CELL HEMOGLOBIN 28.1 pg (27.9-34.1); MEAN CELL HEMOGLOBIN CONCENTR. 32.3 g/dL (32.4-36.7); MEAN CELL VOLUME 86.8 fL (81.5-99.8); MEAN PLATELET VOLUME 13.9 fL (8.7-11.7); PLATELET CLUMPS FLAG 0 (0-99); PLATELET COUNT 74 10^3/uL (150-400); RED CELL DISTRIBUTION WIDTH 15.8 % (11.5-15.2)
[2016-12-23] MEDS: KETOROLAC 15 MG/1 ML SDV IVP SCH ×4 (05:16→19:05)
[2016-12-23] MEDS: ceFAZolin 2 GM in D5W 100 ML IV SCH (05:17)
[2016-12-23 05:28] LABS: ANION GAP 5 mEq/L (8-16); CALCIUM 8.7 mg/dL (8.5-10.4); CARBON DIOXIDE 26 mEq/l (22-31); CHLORIDE 106 mEq/L (97-110); GLOMERULAR FILTRATION RATE 55; GLUCOSE 130 mg/dL (70-100); POTASSIUM 4.9 mEq/L (3.5-5.2); SODIUM 137 mEq/L (134-144)
[2016-12-23] MEDS: ONDANSETRON 4 MG/2 ML VIAL IVP PRN ×2 (06:15→17:07)
--- NOTE | 2016-12-23 07:58 | SOAPPROG ---
SOAP Progress Note Assessment/Plan: Assessment: POD#2 Redo median sternotomy, MVR #25 Magna bioprosthesis, TVA #34 MC3 ring, Aguiar-Maze IV, preservation bioprosthetic AV Sx severe MR - s/p tissue MVR. Stable early postop course. Antithrombotic prophylaxis as per atrial fibrillation. Secondary TR - Amenable to annuloplasty. Antithrombotic prophylaxis as per MVR. Long standing persistent AF - s/p Aguiar-Maze IV w Apacing for JR, escape ~40. Izzy dysfx expected to resolve. Slow reinitiation of Coumadin until PPM needs clearer. Target INR 2-3. Duration TBD. Cont avoidance of BB. 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 Autodiuresing with stable renal fx. Heart failure regimen as appropriate. Acute blood loss anemia w thrombocytopenia - Stable. No blood transfusions required. No evidence active bleeding. Platelet suppression likely exacerbated by NSAID. No VTE prophylaxis while plt count < 100. Follow. H/O remote bioprosthetic AVR with ascending aortic replacement - No apparent valvular injury during MVR. Surveillance as per MVR. Anxiety/depression - Home meds resumed. Plan: D/C chest tubes. Reduce backup pacing to AAI 50. Increase activity and pulm toilet. Wean O2. Coumadin 2.5 mg today. 12/23/16 07:56 Subjective: Doing ok. Adequate analgesia. No acute concerns. Objective: Vital Signs Temp Pulse Resp BP Pulse Ox 36.8 C 59 L 22 H 110/54 L 97 12/23/16 07:43 12/23/16 07:43 12/23/16 07:43 12/23/16 07:43 12/23/16 07:43 Laboratory Results 12/23/16 04:28 12/23/16 04:28 12/22/16 12/23/16 12/24/16 05:59 05:59 05:59 Intake Total 1303 3071 Output Total 2470 1685 Balance -1167 1386 PT 16.0 SEC (12.0-15.0) H 12/23/16 04:28 INR 1.28 (0.83-1.16) H 12/23/16 04:28 Remains Apaced. Underlying rhythm junct escape 40s. SBPs > 100 held with backup rate of 50. CXR-> drains in good position, no pulm vasc congestion, no pl eff, mild bibasilar atelectasis R>L, prominent bowel gas. CTOP at removal criteria. I>O but overall -1kg. Labs ok. Dip in H/H likely reflects + Is (ie. dilutional) Physical Exam - Physical Exam General Appearance: alert, no apparent distress Respiratory: lungs clear, other (Blakes x 3 to bulb suction, serosang drainage. Heri #3 80cc since OOB. Blakes #1,2 removed without incident.) Cardiac/Chest: regular rate, rhythm (paced), other (Sternum grossly stable. Sternotomy and left groin CDI) Abdomen: non-tender, soft Skin: warm/dry Extremities: other (no visible edema) ICD10 Worksheet Patient Problems: Problems Problem Status Onset S/P ablation of atrial fibrillation Acute S/P mitral valve replacement with bioprosthetic valve Acute S/P tricuspid valve repair Acute H/O aortic valve replacement with tissue graft Chronic H/O ascending aorta repair Chronic Atrial flutter Acute
[2016-12-23] MEDS: SENNOSIDES/DOCUSATE SODIUM TAB PO SCH ×2 (08:07→21:25)
[2016-12-23] MEDS: ESCITALOPRAM OXALATE 10 MG TAB PO SCH (08:07)
[2016-12-23] MEDS: HYDROCODONE/APAP 5/325 TAB PO PRN ×2 (08:08→21:29)
[2016-12-23] MEDS: ASPIRIN EC 81 MG TAB PO SCH (08:09)
[2016-12-23] MEDS: MUPIROCIN 2% 22 GM OINT NS SCH (11:38)
[2016-12-23] MEDS: WARFARIN SODIUM 2.5 MG TAB PO SCH (17:08)
[2016-12-23] MEDS: traMADol 50 MG TAB PO PRN (22:54)
[2016-12-24 06:17] LABS: % IMMATURE GRANULYOCYTES 0.7 % (0.0-1.1); ADD DIFF? NO; ADD MORPH? NO; ADD SCAN? NO; ATYPICAL LYMPHOCYTE FLAG 0 (0-99); FRAGMENT RBC FLAG 0 (0-99); HEMATOCRIT 23.6 % (38.0-47.0); HEMOGLOBIN 7.6 g/dL (12.6-16.3); LEFT SHIFT FLG 20 (0-99); LIPEMIA HEMOLYSIS FLAG 80 (0-99); MEAN CELL HEMOGLOBIN 27.6 pg (27.9-34.1); MEAN CELL HEMOGLOBIN CONCENTR. 32.2 g/dL (32.4-36.7); MEAN CELL VOLUME 85.8 fL (81.5-99.8); MEAN PLATELET VOLUME 12.6 fL (8.7-11.7); PLATELET CLUMPS FLAG 0 (0-99); PLATELET COUNT 85 10^3/uL (150-400); RED BLOOD CELL COUNT 2.75 10^6/uL (4.18-5.33); RED CELL DISTRIBUTION WIDTH 15.6 % (11.5-15.2)
[2016-12-24 06:36] LABS: ANION GAP 5 mEq/L (8-16); CALCIUM 8.6 mg/dL (8.5-10.4); CARBON DIOXIDE 26 mEq/l (22-31); CHLORIDE 104 mEq/L (97-110); CREATININE 0.9 mg/dL (0.6-1.0); GLOMERULAR FILTRATION RATE > 60; GLUCOSE 103 mg/dL (70-100); POTASSIUM 4.8 mEq/L (3.5-5.2); SODIUM 135 mEq/L (134-144)
[2016-12-24 06:43] LABS: INR 1.27 (0.83-1.16); PROTIME(PATIENT) 15.9 SEC (12.0-15.0)
[2016-12-24] MEDS: KETOROLAC 15 MG/1 ML SDV IVP SCH ×4 (07:23→22:51)
--- NOTE | 2016-12-24 07:29 | SOAPPROG ---
[facility] Progress Note Assessment/Plan: POD#3 Redo median sternotomy, MVR #25 Magna bioprosthesis, TVA #34 MC3 ring, Aguiar -Maze IV, preservation bioprosthetic AV Sx severe MR - s/p tissue MVR. Stable early postop course. Antithrombotic prophylaxis as per atrial fibrillation. Secondary TR - Amenable to annuloplasty. Antithrombotic prophylaxis as per MVR. Long standing persistent AF - s/p Aguiar-Maze IV w partial recovering of post-op sinus dysfunction. Continue AP at 50. Dr. Gee following, although PPM unlikely. Continue Coumadin with Target INR 2-3. Duration TBD. Cont avoidance of BB/AVB. 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 Autodiuresing with stable renal fx. Heart failure regimen as appropriate. Acute blood loss anemia w thrombocytopenia - Stable. No blood transfusions required. No evidence active bleeding. No VTE prophylaxis while plt count < 100. Follow. H/O remote bioprosthetic AVR with ascending aortic replacement - No apparent valvular injury during MVR. Surveillance as per MVR. Anxiety/depression - Home meds resumed. 12/24/16 14:10 Subjective: Overall feels well. Pain well-controlled. Tired. Objective: Vital Signs Temp Pulse Resp BP Pulse Ox 36.8 C 47 L 19 113/59 L 93 12/24/16 04:00 12/24/16 04:00 12/24/16 04:00 12/24/16 04:00 12/24/16 04:00 Laboratory Results 12/24/16 05:55 12/24/16 05:55 12/23/16 12/24/16 12/25/16 05:59 05:59 05:59 Intake Total 3071 700 Output Total 1685 30 Balance 1386 670 PT 15.9 SEC (12.0-15.0) H 12/24/16 05:55 INR 1.27 (0.83-1.16) H 12/24/16 05:55 Physical Exam - Physical Exam General Appearance: WD/WN, alert, no apparent distress EENT: No scleral icterus (R), No scleral icterus (L) Neck: normal inspection Respiratory: chest non-tender, lungs clear, normal breath sounds, No respiratory distress Cardiac/Chest: regular rate, rhythm, bradycardia, other (AP) Abdomen: non-tender, soft, No distended Skin: normal color, warm/dry Extremities: No pedal edema Neuro/Psych: no motor/sensory deficits, alert, normal mood/affect, oriented x 3 ICD10 Worksheet Patient Problems: Problems Problem Status Onset S/P ablation of atrial fibrillation Acute S/P mitral valve replacement with bioprosthetic valve Acute S/P tricuspid valve repair Acute H/O aortic valve replacement with tissue graft Chronic H/O ascending aorta repair Chronic Atrial flutter Acute
--- NOTE | 2016-12-24 08:47 | PDCARPN ---
Cardiology Progress Note Chief Complaint: Bradycardia Assessment/Plan: Assessment: 71-year-old female status post redo mitral valve surgery, tricuspid valve repair , right and left side Maze procedure. Was bradycardic post surgery requiring atrial pacing. Patient is known to our service. Dr. Carl asked me to see the patient to assess whether she needs a permanent pacemaker. Plan: Inhibition of atrial pacing reveals sinus rhythm between 45 to 50 beats per minute. Very likely patient will not need a pacemaker prior to discharge. Will monitor in the hospital on telemetry until discharge. Avoid AV av blocking agents at this time. 12/24/16 08:45 Subjective: Feels well, just back from PT, no complaints Reviewed/Discussed With: multidisciplinary team Time Spent With Patient: 15 minutes Objective: Vital Signs (8 Hrs) Temp Pulse Resp BP Pulse Ox 12/24/16 08:00 36.4 C 50 L 18 115/66 92 12/24/16 04:00 36.8 C 47 L 19 113/59 L 93 Intake/Output (24 Hrs) 12/22/16 12/23/16 12/24/16 11:59 11:59 11:59 Intake Total 1303 3071 700 Output Total 2860 1295 130 Balance -1557 1776 570 Intake: Oral (ml) 750 2200 700 IV Intake (ml) 100 IV Infused (ml) 553 771 Insulin Regular Human 100 23 13 unit In Ns 100 ml @ Per Protocol IV CONT ESAU Rx#: [id number] Ns 1,000 ml @ 25 mls/hr 470 758 IV CONT ESAU Rx#: [id number] niCARdipine/NACL 200 ml @ 60 Titrate IV CONT ESAU Rx#: [id number] Output: Urine (ml) 1800 900 Catheter 1800 Toilet 900 Chest Tube Drainage (ml) 1060 395 130 Location 1 Mediastinal 1045 Location 1 Right Pleural 5 145 Location 2 Mediastinal 5 140 Location 3 Left Pleural 5 110 130 Other: Weight 67 kg 76.1 kg Intake Quantity Yes Yes Sufficient Number of Voids Toilet 1 1 Result Diagrams: 12/24/16 05:55 12/24/16 05:55 Telemetry: Sinus rhythm with frequent PACs. Low voltage P waves best seen in inferior leads. ICD10 Worksheet Patient Problems: Problems Problem Status Onset S/P ablation of atrial fibrillation Acute S/P mitral valve replacement with bioprosthetic valve Acute S/P tricuspid valve repair Acute H/O aortic valve replacement with tissue graft Chronic H/O ascending aorta repair Chronic Atrial flutter Acute
[2016-12-24] MEDS: SENNOSIDES/DOCUSATE SODIUM TAB PO SCH ×2 (10:06→21:16)
[2016-12-24] MEDS: ESCITALOPRAM OXALATE 10 MG TAB PO SCH (10:07)
[2016-12-24] MEDS: ASPIRIN EC 81 MG TAB PO SCH (10:07)
[2016-12-24] MEDS ORDERED: WARFARIN SODIUM 2.5 MG TAB PO ONE (16:00)
[2016-12-24] MEDS: traMADol 50 MG TAB PO PRN (22:25)
[2016-12-25] MEDS: traMADol 50 MG TAB PO PRN ×2 (04:36→20:57)
[2016-12-25] MEDS: KETOROLAC 15 MG/1 ML SDV IVP SCH ×4 (04:57→22:51)
[2016-12-25 05:45] LABS: INR 1.77 (0.83-1.16); PROTIME(PATIENT) 20.7 SEC (12.0-15.0)
--- NOTE | 2016-12-25 09:03 | SOAPPROG ---
[facility] Progress Note Assessment/Plan: POD#4 Redo median sternotomy, MVR #25 Magna bioprosthesis, TVA #34 MC3 ring, Aguiar -Maze IV, preservation bioprosthetic AV Sx severe MR - s/p tissue MVR. Stable early postop course. Antithrombotic prophylaxis as per atrial fibrillation. Secondary TR - Amenable to annuloplasty. Antithrombotic prophylaxis as per MVR. Long standing persistent AF - s/p Aguiar-Maze IV w partial recovery of post-op sinus dysfunction. Continue AP at 50. Dr. Gee plan to place PPM tomorrow. Coumadin with Target INR 2-3 (held). 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 Lasix prn. Heart failure regimen as appropriate. Acute blood loss anemia w thrombocytopenia - Stable. No blood transfusions required. No evidence active bleeding. H/O remote bioprosthetic AVR with ascending aortic replacement - No apparent valvular injury during MVR. Surveillance as per MVR. Anxiety/depression - Home meds resumed. Subjective: Feels well. Upset a pacemaker is needed. Objective: Vital Signs Temp Pulse Resp BP Pulse Ox 36.6 C 58 L 18 111/53 L 93 12/25/16 08:00 12/25/16 08:00 12/25/16 08:00 12/25/16 08:00 12/25/16 08:00 Laboratory Results 12/24/16 05:55 12/24/16 05:55 12/24/16 12/25/16 12/26/16 05:59 05:59 05:59 Intake Total 700 150 Output Total 130 1010 Balance 570 -860 PT 20.7 SEC (12.0-15.0) H 12/25/16 05:05 INR 1.77 (0.83-1.16) H 12/25/16 05:05 Physical Exam - Physical Exam General Appearance: WD/WN, alert, no apparent distress EENT: No scleral icterus (R), No scleral icterus (L) Neck: normal inspection Respiratory: No respiratory distress Cardiac/Chest: other (JR) Abdomen: non-tender, soft, No distended Skin: normal color, warm/dry Extremities: No pedal edema Neuro/Psych: no motor/sensory deficits, alert, normal mood/affect, oriented x 3 ICD10 Worksheet Patient Problems: Problems Problem Status Onset S/P ablation of atrial fibrillation Acute S/P mitral valve replacement with bioprosthetic valve Acute S/P tricuspid valve repair Acute H/O aortic valve replacement with tissue graft Chronic H/O ascending aorta repair Chronic Atrial flutter Acute
[2016-12-25 09:11] LABS: HEMATOCRIT 24.2 % (38.0-47.0); HEMOGLOBIN 7.5 g/dL (12.6-16.3); MEAN CELL HEMOGLOBIN 27.1 pg (27.9-34.1); MEAN CELL VOLUME 87.4 fL (81.5-99.8); RED BLOOD CELL COUNT 2.77 10^6/uL (4.18-5.33); RED CELL DISTRIBUTION WIDTH 15.5 % (11.5-15.2)
[2016-12-25] MEDS: ESCITALOPRAM OXALATE 10 MG TAB PO SCH (09:17)
[2016-12-25] MEDS: ASPIRIN EC 81 MG TAB PO SCH (09:17)
[2016-12-25] MEDS: SENNOSIDES/DOCUSATE SODIUM TAB PO SCH ×2 (09:17→20:31)
--- NOTE | 2016-12-25 09:43 | PDCARPN ---
Cardiology Progress Note Chief Complaint: Offers no complaints, daughter in the room with her. Assessment/Plan: Assessment: 71-year-old female status post redo mitral valve surgery, tricuspid valve repair , right and left side Maze procedure. Was bradycardic post surgery requiring atrial pacing. Plan: Today is postoperative day 5, patient has junctional rhythm at rates between 30 and 35 beats per minute, sometimes even lower requiring atrial pacing. Unlikely that she will recover adequately to safely send home without permanent pacemaker. Procedure was reviewed with her and her daughter at length. Risks of the procedure including , cardiac tamponade, pneumothorax, infection, bleeding, deep venous thrombosis, pulmonary embolism etc were discussed with the patient. At the patient's request, I will also call her son who is flying back to [place] now, I will call him later in the afternoon. Nurse was present in the room for this discussion. Case was discussed with Dr. Moi Carl who agrees with plan. Procedure is scheduled for noon tomorrow. 12/25/16 09:41 Subjective: Feels well, offers no complaints Time Spent With Patient: 30 minutes Objective: Vital Signs (8 Hrs) Temp Pulse Resp BP Pulse Ox 12/25/16 08:00 36.6 C 58 L 18 111/53 L 93 12/25/16 04:00 36.5 C 50 L 15 145/71 H 96 Intake/Output (24 Hrs) 12/23/16 12/24/16 12/25/16 11:59 11:59 11:59 Intake Total 3071 700 150 Output Total 8765 759 1732 Balance 1776 570 -860 Intake: Oral (ml) 2200 700 150 IV Intake (ml) 100 IV Infused (ml) 771 Insulin Regular Human 100 13 unit In Ns 100 ml @ Per Protocol IV CONT ESAU Rx#: [id number] Ns 1,000 ml @ 25 mls/hr 758 IV CONT ESAU Rx#: [id number] Output: Urine (ml) 900 850 Toilet 900 850 Chest Tube Drainage (ml) 395 130 160 Location 1 Right Pleural 145 Location 2 Mediastinal 140 Location 3 Left Pleural 110 130 160 Other: Weight 67 kg 76.1 kg 76.3 kg Intake Quantity Yes Yes Sufficient Number of Voids Toilet 1 1 1 Result Diagrams: 12/25/16 08:56 12/24/16 05:55 Telemetry: While changing temporary pacing to 30 beats per minute, underlying rhythm is between 30 and 35 beats per minute, junctional rhythm, requires pacing intermittently even while underlying AAI pacing at 30 beats per minute. ICD10 Worksheet Patient Problems: Problems Problem Status Onset H/O ascending aorta repair Chronic H/O aortic valve replacement with tissue graft Chronic S/P mitral valve replacement with bioprosthetic valve Acute S/P tricuspid valve repair Acute S/P ablation of atrial fibrillation Acute Atrial flutter Acute
[2016-12-25] MEDS ORDERED: POTASSIUM CL 20 MEQ/15 ML UDCUP PO ONE (10:16)
[2016-12-25] MEDS: FUROSEMIDE 40 MG TAB PO SCH (15:42)
[2016-12-25] MEDS: HEPARIN 5,000 UNIT/0.5 ML SYR SC SCH ×2 (15:43→15:58)
[2016-12-25] MEDS ORDERED: ENOXAPARIN 80 MG/0.8 ML SYR SC ONE (16:30)
[2016-12-26] MEDS: ALPRAZolam 0.25 MG TAB PO PRN ×2 (02:47→21:51)
[2016-12-26 03:13] LABS: % IMMATURE GRANULYOCYTES 1.8 % (0.0-1.1); ABSOLUTE IMMATURE GRANULOCYTES 0.14 10^3/uL (0.00-0.10); ABSOLUTE NRBC COUNT 0.04 10^3/uL (0-0.01); ADD DIFF? NO; ADD MORPH? NO; ADD SCAN? NO; ATYPICAL LYMPHOCYTE FLAG 30 (0-99); FRAGMENT RBC FLAG 0 (0-99); HEMATOCRIT 23.8 % (38.0-47.0); HEMOGLOBIN 7.5 g/dL (12.6-16.3); LEFT SHIFT FLG 50 (0-99); LIPEMIA HEMOLYSIS FLAG 80 (0-99); MEAN CELL HEMOGLOBIN 27.7 pg (27.9-34.1); MEAN CELL HEMOGLOBIN CONCENTR. 31.5 g/dL (32.4-36.7); MEAN CELL VOLUME 87.8 fL (81.5-99.8); MEAN PLATELET VOLUME 11.2 fL (8.7-11.7); NRBC-AUTO% 0.5 % (0.0-0.2); PLATELET CLUMPS FLAG 0 (0-99); PLATELET COUNT 150 10^3/uL (150-400); RED BLOOD CELL COUNT 2.71 10^6/uL (4.18-5.33); RED CELL DISTRIBUTION WIDTH 15.4 % (11.5-15.2)
[2016-12-26 03:22] LABS: INR 1.96 (0.83-1.16); PROTIME(PATIENT) 22.4 SEC (12.0-15.0)
[2016-12-26 03:23] LABS: APTT 40.9 SEC (23.0-38.0)
[2016-12-26 03:31] LABS: ALANINE AMINOTRANSFERASE 32 IU/L (9-52); ALBUMIN 2.8 g/dL (3.5-5.0); ALKALINE PHOSPHATASE 60 IU/L (38-126); ANION GAP 4 mEq/L (8-16); ASPARTATE AMINOTRANSFERASE 42 IU/L (14-46); BILIRUBIN,TOTAL 0.8 mg/dL (0.1-1.4); CALCIUM 8.7 mg/dL (8.5-10.4); CARBON DIOXIDE 27 mEq/l (22-31); CHLORIDE 105 mEq/L (97-110); CREATININE 0.7 mg/dL (0.6-1.0); GLOMERULAR FILTRATION RATE > 60; GLUCOSE 102 mg/dL (70-100); POTASSIUM 4.6 mEq/L (3.5-5.2); SODIUM 136 mEq/L (134-144); TOTAL PROTEIN 5.2 g/dL (6.3-8.2)
[2016-12-26] MEDS ORDERED: ceFAZolin 2 GM/DEXTROSE 100 ML IV ONE ×2 (06:00→11:00)
[2016-12-26] MEDS ORDERED: BACITRACIN IRRIGATION/NS 50,000 UNITS/1,000 ML BTL IRR ONE (06:00)
[2016-12-26] MEDS ORDERED: NS 1,000 ML IV ONE (06:00)
[2016-12-26] MEDS: SENNOSIDES/DOCUSATE SODIUM TAB PO SCH (07:44)
[2016-12-26] MEDS: KETOROLAC 15 MG/1 ML SDV IVP SCH ×3 (07:53→16:59)
[2016-12-26] MEDS ORDERED: BUPIVACAINE 0.5% 30 ML SDV ONE (10:20)
[2016-12-26] MEDS ORDERED: MIDAZOLAM 2 MG/2 ML VIAL ONE (10:20)
[2016-12-26] MEDS ORDERED: fentaNYL 100 MCG/2 ML INJ ONE (10:20)
[2016-12-26] MEDS ORDERED: LIDOCAINE 1% 30 ML SDV ONE (10:20)
[2016-12-26] MEDS ORDERED: IOPAMIDOL (ISOVUE-300) 100 ML BTL IV ONE (10:21)
--- NOTE | 2016-12-26 11:09 | ECHO ---
[id number] + + [address] : : [place] [address] : : [phone] + + Adult Echocardiographic Report + -----+ :Name: JUNO POST WStudy Date: 12/26/2016 08:30 AM : : Hospital Admission Number: [id number] Location : 207: :: 1945 Gender: Female Height: 63 in : :Age: 71 yrs Race: WH,White Weight: 168 lb : :Reason For Study: Eval LV Fx : : BSA: 1.8 meters2 : :History: S/P MVR #25 Magna, TVA #34 ring, AVR in past, : :external pacer. : + -----+ MMode/2D Measurements \T\ Calculations IVSd: 0.83 cm LVIDd: 4.4 cm FS: 44.4 % Ao root diam: 2.3 cm LVPWd: 1.1 cm LVIDs: 2.4 cm EDV(Teich): 85.4 ml ACS: 1.1 cm ESV(Teich): 20.6 ml EF(Teich): 75.9 % LVOT diam: 1.9 cm LVOT area: 2.8 cm2 Normal Measurement Values: + + :LVIDd (3.5-5.7cm) IVSd (0.6-1.1cm) LVPWd (0.6-1.1cm) Aortic Root (2.0-3.7cm)Left Atrium (1.5-4.0cm): :LV Vol(d) (76-115ml) LV Vol(s) (29-48ml) Ejec Fraction (50-65%)PV Darrel (0.6- 1.2m/s) TV Darrel (0.4-1.0m/s) : :MV E Darrel (0.8-1.0m/s)MV A Darrel (0.3-1.0m/s)LVOT Darrel (0.7-1.2m/s) Asc Ao Darrel ( 0.9-1.8m/s) : + + Doppler Measurements \T\ Calculations MV E max darrel: MV V2 max: MV P1/2t max darrel: Ao V2 max: 217.5 cm/sec 247.0 cm/sec 214.5 cm/sec 244.3 cm/sec MV dec time: MV max PG: MV P1/2t: 111.3 msec Ao max P.42 sec 24.4 mmHg 23.9 mmHg MV V2 mean: MVA(P1/2t): 2.0 cm2 Ao mean P.1 cm/sec MV dec slope: 12.4 mmHg MV mean P.6 cm/sec2 Ao V2 mean: 8.5 mmHg 157.4 cm/sec MV V2 VTI: Ao V2 VTI: 63.7 cm 44.3 cm MVA(VTI): KORI(I,D): 1.3 cm2 0.90 cm2 LV V1 mean PG: SV(LVOT): 57.6 ml PA V2 max: TR max darrel: 2.6 mmHg 150.7 cm/sec 301.3 cm/sec LV V1 mean: PA max P.1 mmHg TR max P.0 cm/sec 36.3 mmHg LV V1 VTI: 20.3 cm RAP systole: 5.0 mmHg RVSP(TR): 41.3 mmHg Left Ventricle The left ventricle is normal in size. There is normal left ventricular wall thickness. The left ventricular ejection fraction is normal. Ejection Fraction = 75%. Septal wall motion consistent with external pacemaker activation. Right Ventricle The right ventricle is normal in size and function. Atria The left atrium is mild to moderately dilated. Right atrial size is normal. Mitral Valve There is a bioprosthetic mitral valve. The prosthetic mitral valve is well- seated. The MV mean PG is 8.5 mmHg. Tricuspid Valve There is a tricuspid valve ring. There is trace to mild tricuspid regurgitation. Right ventricular systolic pressure is 41mmHg. There is Doppler evidence for mild pulmonary hypertension. Aortic Valve There is a bioprosthetic aortic valve. The Ao mean PG is 12 mmHg, The Ao V2 max is 2.4 m/sec. Pulmonic Valve The pulmonic valve is normal in structure and function. Great Vessels The aortic root is normal size. Pericardium/Pleural There is no pericardial effusion. Conclusion A complete two-dimensional transthoracic echocardiogram was performed (2D, M-mode, Doppler and color flow Doppler). The left ventricular ejection fraction is normal. Ejection Fraction = 75%. Septal wall motion consistent with external pacemaker activation. The left atrium is mild to moderately dilated. There is a bioprosthetic mitral valve. The prosthetic mitral valve is well-seated. The MV mean PG is 8.5 mmHg. There is a tricuspid valve ring. There is trace to mild tricuspid regurgitation. Right ventricular systolic pressure is 41mmHg. There is Doppler evidence for mild pulmonary hypertension. There is a bioprosthetic aortic valve. The Ao mean PG is 12 mmHg, The Ao V2 max is 2.4 m/sec. There is no pericardial effusion. Final Reading Physician: Cullen Gee MD electronically signed on 12/26/2016 11:07 AM Ordering Physician: Dallas Gracia Performed By: Jesús Yates, NICHOCS
--- NOTE | 2016-12-26 13:08 | SOAPPROG ---
[facility] Progress Note Assessment/Plan: Assessment: POD#5 Redo median sternotomy, MVR #25 Magna bioprosthesis, TVA #34 MC3 ring, Aguiar-Maze IV, preservation bioprosthetic AV Sx severe MR - s/p tissue MVR. Stable early postop course. Antithrombotic prophylaxis as per atrial fibrillation. Secondary TR - Amenable to annuloplasty. Antithrombotic prophylaxis as per MVR. Long standing persistent AF - s/p Aguiar-Maze IV w Apacing for JR, escape ~40. No sig recovery of av fx and PPM implanted. Resumption of coumadin when cleared by EP. Target INR 2-3. Duration TBD. AF prophylaxis with BB. 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 Actively diuresing with stable renal fx. Ancillary heart failure regimen as appropriate. Acute blood loss anemia w thrombocytopenia - Stable. No blood transfusions required. Downward drift in H/H plateauing around 7/24. Dilutional component suspected as +7kg by weight. Transfusion only if sx. H/O remote bioprosthetic AVR with ascending aortic replacement - No apparent valvular injury during MVR. Surveillance as per MVR. Anxiety/depression - Home meds resumed. Plan: Remove TCPWs after back from PPM. Remove left pleural drain 1h post wire removal if no sig drainage. Cont BID diuresis. Cont SQ hep pending resumption Coumadin. Dispo - likely could go home 12/26/16 12:56 Subjective: Poor sleep last night and more tired than usual. Was able to walk 1 lap without leaning on side bar. Nervous about going home tomorrow but thinks will be ready by Wed. Interested in starting cardiac rehab by end of week. Objective: Vital Signs Temp Pulse Resp BP Pulse Ox 37.3 C 71 26 H 131/70 H 97 12/26/16 08:00 12/26/16 08:00 12/26/16 08:00 12/26/16 08:00 12/26/16 08:00 Laboratory Results 12/26/16 03:00 12/26/16 03:00 12/25/16 12/26/16 12/27/16 05:59 05:59 05:59 Intake Total 150 200 Output Total 1010 525 90 Balance -860 -325 -90 PT 22.4 SEC (12.0-15.0) H 12/26/16 03:00 INR 1.96 (0.83-1.16) H 12/26/16 03:00 PPM at noon. MAPs > 70. Stable suppl O2 req. CXR-> left pl space well drained, sm residual rt pl eff. Improving fluid balance. Left pleural drain output decreasing. H/H stable. INR rising. Physical Exam - Physical Exam General Appearance: alert, no apparent distress Respiratory: lungs clear (anteriorly), other (estrada x 1 to bulb suction, thin serosang drainage with fibrinous stranding in tube.) Cardiac/Chest: regular rate, rhythm (paced), other (Sternotomy CDI. A&V wires intact) Abdomen: non-tender, soft Skin: warm/dry Extremities: swelling (1+) ICD10 Worksheet Patient Problems: Problems Problem Status Onset S/P ablation of atrial fibrillation Acute S/P mitral valve replacement with bioprosthetic valve Acute S/P tricuspid valve repair Acute H/O aortic valve replacement with tissue graft Chronic H/O ascending aorta repair Chronic Atrial flutter Acute
--- NOTE | 2016-12-26 13:13 | CPEKG ---
Heart Rate: 74 RR Interval: 811 P-R Interval: 124 QRSD Interval: 100 QT Interval: 416 QTC Interval: 462 QRS [place]: 52 T Wave [place]: -18 EKG Severity - ABNORMAL ECG - EKG Impression: ATRIAL-PACED RYTHM/COMPLEXES Electronically Signed By: Luan Potts 26-Dec-2016 14:50:36
[2016-12-26] MEDS: FUROSEMIDE 40 MG TAB PO SCH ×2 (13:31→14:22)
[2016-12-26] MEDS: ESCITALOPRAM OXALATE 10 MG TAB PO SCH (14:22)
[2016-12-26] MEDS: ASPIRIN EC 81 MG TAB PO SCH (14:23)
[2016-12-26] MEDS: ACETAMINOPHEN 325 MG TAB PO PRN ×2 (15:38→21:50)
[2016-12-26] MEDS ORDERED: SENNOSIDES/DOCUSATE SODIUM TAB PO PRN (21:00)
[2016-12-26] MEDS ORDERED: LOSARTAN POTASSIUM 25 MG TAB PO SCH (21:00)
[2016-12-27] MEDS: HYDROCODONE/APAP 5/325 TAB PO PRN (00:12)
[2016-12-27 04:38] LABS: ABSOLUTE NRBC COUNT 0.03 10^3/uL (0-0.01); ADD DIFF? YES; ADD MORPH? NO; ADD SCAN? NO; ATYPICAL LYMPHOCYTE FLAG 30 (0-99); FRAGMENT RBC FLAG 0 (0-99); HEMATOCRIT 21.9 % (38.0-47.0); LEFT SHIFT FLG 70 (0-99); LIPEMIA HEMOLYSIS FLAG 80 (0-99); MEAN CELL HEMOGLOBIN 27.7 pg (27.9-34.1); MEAN CELL VOLUME 86.6 fL (81.5-99.8); NRBC-AUTO% 0.3 % (0.0-0.2); PLATELET CLUMPS FLAG 0 (0-99); PLATELET COUNT 171 10^3/uL (150-400); RED BLOOD CELL COUNT 2.53 10^6/uL (4.18-5.33); RED CELL DISTRIBUTION WIDTH 16.2 % (11.5-15.2)
[2016-12-27 04:48] LABS: INR 1.81 (0.83-1.16); PROTIME(PATIENT) 21.1 SEC (12.0-15.0)
[2016-12-27 04:52] LABS: ANION GAP 4 mEq/L (8-16); CALCIUM 8.3 mg/dL (8.5-10.4); CARBON DIOXIDE 28 mEq/l (22-31); CHLORIDE 104 mEq/L (97-110); CREATININE 0.6 mg/dL (0.6-1.0); GLOMERULAR FILTRATION RATE > 60; GLUCOSE 96 mg/dL (70-100); POTASSIUM 4.5 mEq/L (3.5-5.2); SODIUM 136 mEq/L (134-144)
[2016-12-27 05:20] LABS: ELLIPTOCYTES 1+; HYPOCHROMIA 1+; MACROCYTES 1+; PLATELET ESTIMATE ADEQUATE (ADEQ); POLYCHROMASIA 1+; TOXIC GRANULATION PRESENT
[2016-12-27] MEDS ORDERED: FUROSEMIDE 40 MG/4 ML VIAL IVP SCH (09:00)
--- NOTE | 2016-12-27 09:02 | CPEKG ---
Heart Rate: 66 RR Interval: 909 P-R Interval: 114 QRSD Interval: 92 QT Interval: 444 QTC Interval: 466 QRS [place]: 65 T Wave [place]: -18 EKG Severity - ABNORMAL ECG - EKG Impression: ATRIAL-PACED RHYTHM EKG Impression: BORDERLINE T ABNORMALITIES, DIFFUSE LEADS Electronically Signed By: Cullen Gee 27-Dec-2016 10:24:14
[2016-12-27] MEDS: ASPIRIN EC 81 MG TAB PO SCH (09:05)
[2016-12-27] MEDS: ESCITALOPRAM OXALATE 10 MG TAB PO SCH (09:05)
[2016-12-27] MEDS: ATENOLOL 25 MG TAB PO SCH (09:05)
[2016-12-27 09:24] LABS: HEMATOCRIT 27.2 % (38.0-47.0); HEMOGLOBIN 8.5 g/dL (12.6-16.3)
--- NOTE | 2016-12-27 09:27 | PDCARPN ---
Cardiology Progress Note Chief Complaint: SSS s/p PPM 12/26 Assessment/Plan: Assessment: 71-y/o F with PMH bioAVR with aortic root repair approximately 8 years ago with recurrent AF, severe MR/TR s/p redo median sternotomy, bioMVR, TVA, Aguiar-Maze IV , preservation bioprosthetic AV #. severe MR/AR: s/p bioMVR and TVA #. AF: s/p Aguiar-Maze IV #. Postop bradycardia: junctional rhythm with HR 30-35 and occasionally lower than that s/p PPM 12/26 await CXR arm precautions reviewed will need outpatient pacer clinic follow-up 12/27/16 09:28 Subjective: Denies any pain at pacer site. No dyspnea currently. Reviewed/Discussed With: other (Leena Burns, KILEY) Objective: Vital Signs (8 Hrs) Temp Pulse Resp BP Pulse Ox 12/27/16 09:10 85 L 12/27/16 07:39 98.7 F 60 18 145/74 H 96 12/27/16 04:00 98.6 F 61 17 148/80 H 96 Intake/Output (24 Hrs) 12/26/16 12/27/16 12/28/16 05:59 05:59 05:59 Intake Total 200 250 Output Total 525 460 Balance -325 -210 Intake: Oral (ml) 200 250 Output: Urine (ml) 250 300 Toilet 250 300 Chest Tube Drainage (ml) 275 160 Location 3 Left Pleural 275 160 Other: Weight 75.5 kg 74.7 kg Intake Quantity Yes Sufficient Number of Voids Toilet 1 2 Result Diagrams: 12/27/16 03:56 12/27/16 03:56 Telemetry: A-paced Echocardiogram: reviewed - Physical Exam Constitutional: no apparent distress, No general pain Eyes: PERRL, pale conjunctiva Ears, Nose, Mouth, Throat: moist mucous membranes Cardiovascular: regular rate and rhythm Respiratory: clear to auscultate bilat Gastrointestinal: normoactive bowel sounds, no tenderness Genitourinary: no suprapubic tenderness Skin: no rashes, no abrasions Neurologic: AAOx3 Psychiatric: cooperative, interactive ICD10 Worksheet Patient Problems: Problems Problem Status Onset H/O ascending aorta repair Chronic H/O aortic valve replacement with tissue graft Chronic S/P mitral valve replacement with bioprosthetic valve Acute S/P tricuspid valve repair Acute S/P ablation of atrial fibrillation Acute Atrial flutter Acute
--- NOTE | 2016-12-27 09:44 | SOAPPROG ---
[facility] Progress Note Assessment/Plan: Assessment: POD#6 Redo median sternotomy, MVR #25 Magna bioprosthesis, TVA #34 MC3 ring, Aguiar-Maze IV, preservation bioprosthetic AV Sx severe MR - s/p tissue MVR. Stable early postop course. Antithrombotic prophylaxis as per atrial fibrillation. Secondary TR - Amenable to annuloplasty. Antithrombotic prophylaxis as per MVR. Long standing persistent AF - s/p Aguiar-Maze IV w Apacing for JR, escape ~40. No sig recovery of av fx and PPM implanted yest. Resumption of coumadin okayed. Target INR 2-3. Duration TBD. AF prophylaxis with BB. 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 Actively diuresing with stable renal fx. Ancillary heart failure regimen as appropriate. Acute blood loss anemia w thrombocytopenia - Stable. No blood transfusions required. Downward drift in H/H plateauing around 05/29. Well tolerated. H/O remote bioprosthetic AVR with ascending aortic replacement - No apparent valvular injury during MVR. Surveillance as per MVR. Anxiety/depression - Home meds resumed. Plan: Repeat H/H ok and transfusion cancelled. Cont BID oral diuresis thru today. Coumadin as per home regimen. Cont Cozaar 25 mg hs. Restart Atenolol 25 mg qam. Inc activity. Dispo - likely could go home late today vs tomorrow. 12/27/16 09:40 Subjective: A bit foggy but feeling ok. No dizziness. Satisfactory analgesia. Ok for home if productive morning. Objective: Vital Signs Temp Pulse Resp BP Pulse Ox 37.1 C 60 18 145/74 H 85 L 12/27/16 07:39 12/27/16 07:39 12/27/16 07:39 12/27/16 07:39 12/27/16 09:10 Laboratory Results 12/27/16 09:18 12/27/16 03:56 12/26/16 12/27/16 12/28/16 05:59 05:59 05:59 Intake Total 200 250 Output Total 525 460 Balance -325 -210 PT 21.1 SEC (12.0-15.0) H 12/27/16 03:56 INR 1.81 (0.83-1.16) H 12/27/16 03:56 Remains Apaced. SBP on the rise and low dose Cozaar started last noc. Suppl O2 req down to 1.5 Lpm. Ongoing wt loss ~0.5kg daily. No visible edema. 0600 H/H of 05/27 not corroborated by patricia. - Pending Discharge Pending Discharge Within 24 Hours: Yes Pending Discharge Date: 12/28/16 Pending Discharge Time: 11:00 Physical Exam - Physical Exam General Appearance: alert, no apparent distress Respiratory: lungs clear (grossly) Cardiac/Chest: regular rate, rhythm, other (Sternotomy CDI) Abdomen: non-tender, soft Skin: warm/dry Extremities: other (no visible edema) ICD10 Worksheet Patient Problems: Problems Problem Status Onset S/P ablation of atrial fibrillation Acute S/P mitral valve replacement with bioprosthetic valve Acute S/P tricuspid valve repair Acute H/O aortic valve replacement with tissue graft Chronic H/O ascending aorta repair Chronic Atrial flutter Acute
[2016-12-27] MEDS: FUROSEMIDE 40 MG TAB PO SCH (10:31)
--- NOTE | 2016-12-27 10:51 | EPPROC ---
Electrophysiology Procedure Note: PROCEDURE PERFORMED: 1. Implantation of an A/V Pacemaker 2. Subclavian vein angiography 3. Fluoroscopy INDICATION: S/P aortic, tricuspid and mitral valve surgeries Bradycardia requiring pacing with underlying rhythm 25-35 bpm PROCEDURE NOTE: Patient presented to the cardiac catheterization laboratory in a fasting, post absorptive state. Cardiac label stitcher nurse administered moderate sedation. The left infraclavicular area was prepped and draped in the usual sterile fashion. Lidocaine plus bupivacaine was used for local anesthesia. Left subclavian venography was performed by injection of iodinated contrast into the left antecubital vein. This was done to assure patency of the vein and also to assess for any anatomical aberrations. Using a combination of blunt and sharp dissection and electrocautery, the dissection was carried down to the prepectoral fascia. A pocket was made in this anatomical plane. All bleeding was controlled with electrocautery. The pocket was packed with gauze soaked in antibiotic solution. Fluoroscopy was utilized during the entire procedure for venous access and placement of the leads. Using a direct stick technique the left extrathoracic axillary vein was accessed with 2 sticks using the modified Seldinger technique. Placement of the guidewires into the venous system was confirmed by low-pressure blood return and also by visualizing the guidewires advancing into the inferior vena cava. A purse string suture was applied around the guidewires. Two #7 Khmer sheaths were advanced under fluoroscopic guidance over the guidewire. An active fixation ventricular lead was advanced into the right ventricular apex and screwed in place. An active fixation atrial lead was advanced into the right atrial appendage and screwed in place. The peel away sheaths were removed. Pacing thresholds, sensing parameters and lead impedances were measured. There was no diaphragmatic stimulation at maximum output. The leads were sutured to the prepectoral fascia with 3 nonabsorbable sutures each. The pocket was again inspected for any bleeding. The leads were attached to the pacemaker securely. The pacemaker was inserted into the pocket and secured in place with a nonabsorbable suture. Fluoroscopy was performed in SCHMITZ and TAMAZIGHT planes to verify right-sided placement of the leads. Also fluoroscopy of the pacemaker pocket was performed. The pacemaker pocket was closed in 3 layers with absorbable monocryl sutures and bishop. Appropriate dressing was applied. The patient left the cardiac catheterization laboratory in stable condition. Serial Numbers: 1. Device: SJM Assurity MRI 2272 SN [id number] 2. Atrial Lead: SJM Tendril 45 SN [id number] 3. Ventricular Lead: SJM Tendril 52 SN [id number] Stimulation Thresholds & Impedance Measurements: 1. Atrial Lead 0.5 V 0.5 ms 529 ohm 2. Ventricular Lead 0.5 V 0.5 ms 772 ohm Zhen Pacing Parameters 1. Pacing mode: DDDR 2. Lower rate: 60 ppm 3. Upper tracking rate: 110 ppm 4. Upper sensor rate: 110 ppm Patient Problems: Problems Problem Status Onset H/O ascending aorta repair Chronic H/O aortic valve replacement with tissue graft Chronic S/P mitral valve replacement with bioprosthetic valve Acute S/P tricuspid valve repair Acute S/P ablation of atrial fibrillation Acute Atrial flutter Acute
[2016-12-27 14:33] LABS: POTASSIUM 4.6 mEq/L (3.5-5.2)
[2016-12-27] MEDS: POLYETHYLENE GLYCOL 3350 17 GM PKT PO PRN (15:14)
[2016-12-27] MEDS: WARFARIN SODIUM 2.5 MG TAB PO SCH (15:14)
[2016-12-27] MEDS: traMADol 50 MG TAB PO PRN (15:59)
[2016-12-27] MEDS ORDERED: MAGNESIUM CITRATE 300 ML BOTTLE PO ONE (17:15)
[2016-12-27] MEDS ORDERED: MAALOX/LIDO/HYOSC GI COCKTAIL 55 ML BOTTLE PO ONE (17:33)
[2016-12-27] MEDS ORDERED: diphenhydrAMINE 25 MG CAP PO ONE (20:50)
[2016-12-27] MEDS ORDERED: LOSARTAN POTASSIUM 50 MG TAB PO SCH (21:00)
[2016-12-27] MEDS: ALPRAZolam 0.25 MG TAB PO PRN (21:32)
[2016-12-28] MEDS: traMADol 50 MG TAB PO PRN ×2 (02:29→15:59)
[2016-12-28 05:50] LABS: POTASSIUM 4.4 mEq/L (3.5-5.2)
[2016-12-28 05:52] LABS: INR 1.74 (0.83-1.16); PROTIME(PATIENT) 20.4 SEC (12.0-15.0)
[2016-12-28 05:59] LABS: HEMOGLOBIN 6.8 g/dL (12.6-16.3)
[2016-12-28] MEDS ORDERED: FUROSEMIDE 20 MG/2 ML VIAL IVP ONE (07:19)
[2016-12-28 07:59] LABS: HEMATOCRIT 23.9 % (38.0-47.0); HEMOGLOBIN 7.5 g/dL (12.6-16.3); MEAN CELL HEMOGLOBIN 27.8 pg (27.9-34.1); MEAN CELL HEMOGLOBIN CONCENTR. 31.4 g/dL (32.4-36.7); MEAN CELL VOLUME 88.5 fL (81.5-99.8); RED BLOOD CELL COUNT 2.7 10^6/uL (4.18-5.33); RED CELL DISTRIBUTION WIDTH 16.4 % (11.5-15.2)
[2016-12-28] MEDS ORDERED: POTASSIUM CL 10 MEQ TAB PO ONE (08:00)
[2016-12-28] MEDS: ESCITALOPRAM OXALATE 10 MG TAB PO SCH (09:28)
[2016-12-28] MEDS: ASPIRIN EC 81 MG TAB PO SCH (09:28)
[2016-12-28] MEDS: ATENOLOL 25 MG TAB PO SCH (09:28)
[2016-12-28 11:40] LABS: COLOR COLORLESS; LEUKOCYTE ESTERASE,URINE NEGATIVE (NEGATIVE); NITRITE,URINE NEGATIVE (NEGATIVE)
[2016-12-28 11:51] LABS: BACTERIA TRACE /hpf (NONE SEEN)
[2016-12-28 11:52] LABS: MUCUS NONE SEEN /lpf (NONE-1+)
--- NOTE | 2016-12-28 13:04 | SOAPPROG ---
SOAP Progress Note Assessment/Plan: Assessment: POD#7 Redo median sternotomy, MVR #25 Magna bioprosthesis, TVA #34 MC3 ring, Aguiar-Maze IV, preservation bioprosthetic AV Sx severe MR - s/p tissue MVR. Stable early postop course. Antithrombotic prophylaxis as per atrial fibrillation. Secondary TR - Amenable to annuloplasty. Antithrombotic prophylaxis as per MVR. Long standing persistent AF - s/p Aguiar-Maze IV w Apacing for JR, escape ~40. No sig recovery of av fx and PPM implanted POD#5. Resumption of coumadin okayed. Target INR 2-3. Duration TBD. AF prophylaxis with BB. 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 Actively diuresing with stable renal fx. Ancillary heart failure regimen as appropriate. Acute blood loss anemia w thrombocytopenia - Stable. No blood transfusions required. Downward drift in H/H plateauing around 24. Well tolerated. FeSuppl x 2 wks. H/O remote bioprosthetic AVR with ascending aortic replacement - No apparent valvular injury during MVR. Surveillance as per MVR. Anxiety/depression - Home meds resumed. Plan: Switch to daily diuresis. Coumadin as per home regimen. Cont Cozaar 50 mg hs. Cont Atenolol 25 mg qam. Dispo - Ok for home. 12/28/16 13:00 Subjective: Feeling much better/clearer mentally than yest. Ambulating comfortably. +BM. Agreeable to go home. Objective: Vital Signs Temp Pulse Resp BP Pulse Ox 37.3 C 67 18 109/79 97 12/28/16 12:00 12/28/16 12:00 12/28/16 12:00 12/28/16 12:00 12/28/16 12:00 Laboratory Results 12/28/16 07:39 12/28/16 03:47 12/27/16 12/28/16 12/29/16 05:59 05:59 05:59 Intake Total 250 800 Output Total 460 Balance -210 800 PT 20.4 SEC (12.0-15.0) H 12/28/16 03:47 INR 1.74 (0.83-1.16) H 12/28/16 03:47 Apaced ARB inc to home dose with improved BP control. WBC sl elev. UA neg. H/H stable. Physical Exam - Physical Exam General Appearance: alert, no apparent distress Respiratory: crackles (bases) Cardiac/Chest: regular rate, rhythm, other (Sternum grossly stable. Sternotomy and Left groin incision CDI) Abdomen: normal bowel sounds, non-tender, soft Skin: warm/dry Extremities: swelling (trace) ICD10 Worksheet Patient Problems: Problems Problem Status Onset S/P ablation of atrial fibrillation Acute S/P mitral valve replacement with bioprosthetic valve Acute S/P tricuspid valve repair Acute H/O aortic valve replacement with tissue graft Chronic H/O ascending aorta repair Chronic Atrial flutter Acute
[2016-12-28 13:11] VITALS: BP 133/81; PULSE 63; RESP 22; TEMP 99; O2SAT 99
[2016-12-28] MEDS: POLYETHYLENE GLYCOL 3350 17 GM PKT PO PRN (15:59)
[2016-12-28] MEDS ORDERED: WARFARIN SODIUM 5 MG TAB PO SCH (16:00)
--- NOTE | 2016-12-28 16:22 | PDDCSUM ---
Discharge Summary Discharge Summary: DATE OF ADMISSION: 12/21/16 DATE OF DISCHARGE: 12/28/16 DISPOSITION: Home, self-care PRINCIPAL ADMISSION DIAGNOSES: 1. Severe mitral valve regurgitation. 2. Severe tricuspid valve regurgitation. 3. Longstanding persistent atrial fibrillation/flutter 4. Valvular cardiomyopathy PRINCIPAL DISCHARGE DIAGNOSES: 1. Status post mitral valve replacement with a bioprosthesis. 2. Status post tricuspid valve annuloplasty. 3. Status post CoxMaze IV surgical ablation of atrial fibrillation with amputation and oversew of the left atrial appendage. 4. Acute expected blood loss anemia with thrombocytopenia. 5. Postoperative sinus node dysfunction requiring placement of a dual chamber permanent pacemaker. HISTORY OF PRESENT ILLNESS: 71 yo female with myxomatous valvular heart disease associated with severe FRANCISCO, mild RVSD, mild PHTN, and increasingly symptomatic atrial arrhythmias admitted for elective valvular surgery with CoxMaze IV procedure. PERTINENT PAST MEDICAL HISTORY: 1. CAD excluded - by preop LHC showing left dominant coronary system with no angiographic evidence of disease. 2. Mild carotid artery disease bilateral bulbs - by preop ultrasound. 3. Long standing persistent atrial fibrillation - refractory to DC CVSN. Chronically anticoagulated with Coumadin. Target INR 2-3. Management per [facility] anticoagulation clinic. 4. Presence bioprosthetic aortic valve - s/p 23 mm bovine pericardial valve with ascending aortic replacement in 2007 for BAV with aneurysmal ascending aorta.. 5. HTN 6. Depression with anxiety. 7. Habitual THC user. MEDICATIONS ON ADMISSION: ASA 81 mg daily; Coumadin 5 mg MWF alternating with 2.5 mg rest of week; Cozaar 50 mg daily; Atenolol 25 mg qam and 12.5 mg qhs; Lexapro 10 mg daily: Alprazolam 0.25 mg daily prn anxiety ALLERGIES: NKDA CONSULTANTS: EP cardiology (Marlen) PROCEDURES/IMAGIN/15 (Meseret): Redo median sternotomy. Exposure left common femoral artery and vein. Cardiopulmonary bypass inflow via left common femoral artery. Lysis of epicardial adhesions. Mitral valve replacement with a 25 mm Purvis Magna bovine pericardial bioprosthesis. Tricuspid valve annuloplasty with a 34 mm Purvis MC3 ring. CoxMaze IV procedure using [employer]'s Isolator Synergy ablation system utilizing bipolar radiofrequency and cryothermy. Preservation of bioprosthetic aortic valve. Primary repair of femoral vessels after decannulation. 12/26 (Marlen): Transthoracic echocardiogram. 12/26 (Marlen): Implantation of a dual chamber [employer] [place] Assurity permanent pacemaker. Left deltopectoral groove. Mode DDDR. Lower rate 60 ppm ABBREVIATED HOSPITAL COURSE: Admitted on the day of surgery and taken to the OR. Peripherally cannulated as the right heart known to be dilated and found to be adherent to the back of the sternum. Scar tissue was freed without incident and a full Maze able to be completed. The mitral valve was small, with ruptured chordae to the anterior leaflet, and suboptimal exposure for repair due to the aortic prosthesis. A chordal sparing replacement was therefore undertaken and the new prosthesis seated without difficulty. The tricuspid valve was structurally normal with a dilated annulus amenable to annuloplasty. The entire procedure was well tolerated with postop KHADIJAH demonstrating restored valvular competence with preserved LV systolic fx, no AI, and no paravalvular leaks. Extubated in the OR and transferred to the ICU in hemodynamically stable condition. No vasoactive support, blood or blood products required. Postop course remarkable for prolonged sinus node dysfunction with junctional escape in the 30s-40s. Permanent pacemaker ultimately inserted on POD#5 and predominantly atrially paced thru discharge. Antithrombotic INR target increased to 2.5 x 3 months for surgical prophylaxis. Routine postop echo notable for reduced atrial dilatation with normalization of right chamber size as well as RV systolic fx. DISCHARGE CLINICAL INFORMATION: Sternum grossly stable. Sternotomy and left groin incision CDI, sutured, + Dermabond. HR 60s, Apaced. SBP 110s-130s. SpO2 86% RA rest, correcting to >94% on 1.5 Lpm. Wt ?8 kg above admission at 67 kilos. Hgb 7.5, HCT 23.9, Plt 218, Na 136, K 4.4, Cr 0.6, AST 42, ALT 32 Coumadin flow sheet: Target INR 2.5-3 x 3 mo, then 2-3. Date INR mg 12/23 1.28 2.5 12/24 1.27 0 12/25 1.77 2.5 12/26 1.96 0 12/27 1.81 2.5 12/28 1.74 5 DISCHARGE MEDICATIONS: As on admission with the following adjustments: Hold nightly Atenolol dose. NEW prescriptions: Lasix 20 mg daily until back to baseline weight and no swelling. Ferrous sulfate 325 mg daily x 2 weeks. Tramadol 50 mg q6-8hr prn incisional discomfort. Miralax 17 gm daily prn constipation. O2 continuously @ 2 Lpm, or as directed by SpO2. FOLLOW UP APPOINTMENTS: 1. Cardiology: with pacemaker clinic at [facility] on 01/03 at [address] Montilla in 4-6 weeks. Appointment to be established during surgical visit. 2. CV Surgery: with Dr Carl at [facility] on 01/03/17 at 12 noon. 3. Phase II Cardiac rehab orientation at [place] on 01/03 at 1:30pm FOLLOW UP TESTIN. PT/INR at [facility] anticoagulation clinic on 12/30 as directed. 2. Chest xray prior to surgical appointment
[2016-12-28] MEDS ORDERED: FERROUS SULFATE 325 MG TAB PO SCH (21:00)
== END 2016-12-28 17:04 | disposition home or self-care (01) | DRG 217 ==
LOC: UNDOADMIN 07:55 → F3N 07:55 → FCATH 08:20 → F2W 12-21 06:47 → EDSTATUS 12-21 08:15 → F2N 12-21 11:20 → F2W 12-23 11:23
PROVIDERS: ADMIT Thoracic Surgery (Cardiothoracic Vascular Surgery); ATTEND Thoracic Surgery (Cardiothoracic Vascular Surgery)
PROC: B2111ZZ Fluoroscopy of Multiple Coronary Arteries using Low Osmolar Contrast (ICD-10-PCS; 2016-12-16)
PROC: 4A023N7 Measurement of Cardiac Sampling and Pressure, Left Heart, Percutaneous Approach (ICD-10-PCS; 2016-12-16)
PROC: B2151ZZ Fluoroscopy of Left Heart using Low Osmolar Contrast (ICD-10-PCS; 2016-12-16)
PROC: 02UJ0JZ Supplement Tricuspid Valve with Synthetic Substitute, Open Approach (ICD-10-PCS; principal; 2016-12-21 08:31)
PROC: 02RG08Z Replacement of Mitral Valve with Zooplastic Tissue, Open Approach (ICD-10-PCS; principal; 2016-12-21 08:31)
PROC: 02570ZK Destruction of Left Atrial Appendage, Open Approach (ICD-10-PCS; principal; 2016-12-21 08:31)
PROC: B241ZZ4 Ultrasonography of Multiple Coronary Arteries, Transesophageal (ICD-10-PCS; principal; 2016-12-21 08:31)
PROC: 5A1221Z Performance of Cardiac Output, Continuous (ICD-10-PCS; principal; 2016-12-21 08:31)
PROC: 02H63JZ Insertion of Pacemaker Lead into Right Atrium, Percutaneous Approach (ICD-10-PCS; 2016-12-27)
PROC: 0JH606Z Insertion of Pacemaker, Dual Chamber into Chest Subcutaneous Tissue and Fascia, Open Approach (ICD-10-PCS; 2016-12-27)
PROC: 02HK3JZ Insertion of Pacemaker Lead into Right Ventricle, Percutaneous Approach (ICD-10-PCS; 2016-12-27)
DX: I34.0 Nonrheumatic mitral (valve) insufficiency (principal); I36.1 Nonrheumatic tricuspid (valve) insufficiency; I48.92 Unspecified atrial flutter; I48.2 Chronic atrial fibrillation; I42.8 Other cardiomyopathies; I51.89 Other ill-defined heart diseases; D62 Acute posthemorrhagic anemia; D69.6 Thrombocytopenia, unspecified; I49.5 Sick sinus syndrome; F12.20 Cannabis dependence, uncomplicated
CPT/HCPCS: 82947-QW; 97116-GP; 97161-GP; 97165-GO; 97530-GO; 97530-GP; 97535-GO; C1760; C1769; C1785; C1898; G8978-GP-CJ; G8979-GP-CI; G8980-GP-CI; G8987-GO-CK; G8988-GO-CI; J0153; J0171; J0282; J0360; J0690; J1250; J1265; J1644; J1650; J1815; J1885; J2001; J2150; J2250; J2260; J2274; J2370; J2405; J2704; J2720; J2765; J2930; J3010; J3490; J7060; P9041; Q9967

== ENCOUNTER → 2017-01-03 | Outpatient (CLI) | payer OTHER, MEDICARE | LOC: FIMAGING 07:48 | PROVIDERS: ATTEND Thoracic Surgery (Cardiothoracic Vascular Surgery) | DX: J90 Pleural effusion, not elsewhere classified (principal); J98.11 Atelectasis; I51.7 Cardiomegaly ==

== ENCOUNTER → 2017-01-06 | Outpatient (CLI) | payer OTHER, MEDICARE | LOC: FIMAGING 10:48 | PROVIDERS: ATTEND Thoracic Surgery (Cardiothoracic Vascular Surgery) | DX: J90 Pleural effusion, not elsewhere classified (principal); Z98.890 Other specified postprocedural states ==

== ENCOUNTER → 2017-01-09 | Outpatient (CLI) | payer OTHER, MEDICARE ==
[~2017-01-09] MED LIST changes: -IOPAMIDOL (ISOVUE-370) 150 ML BTL IV ONE; +LIDOCAINE 1% 30 ML SDV ONE; +NA BICARBONATE 50 MEQ/50 ML VIAL ONE
== END ==
LOC: FIMAGING 13:29
PROVIDERS: ATTEND Thoracic Surgery (Cardiothoracic Vascular Surgery)
PROC: 0W993ZZ Drainage of Right Pleural Cavity, Percutaneous Approach (ICD-10-PCS; principal; 2017-01-09)
DX: J90 Pleural effusion, not elsewhere classified (principal)

== ENCOUNTER 2017-01-12 10:30 | Day surgery (SDC) | payer OTHER, MEDICARE ==
[2017-01-12] MEDS ORDERED: MIDAZOLAM 2 MG/2 ML VIAL IVP ONE (10:35)
[2017-01-12] MEDS ORDERED: NS 500 ML IV ONE (10:35)
[2017-01-12] MEDS ORDERED: fentaNYL 100 MCG/2 ML INJ IVP ONE (10:35)
[2017-01-12] MEDS ORDERED: BENZOCAINE UNIT DOSE SPRAY HURRICAINE MM ONE (10:35)
[2017-01-12] MEDS ORDERED: PROPOFOL 200 MG/20 ML VIAL IVP ONE (10:35)
[2017-01-12 11:44] LABS: ANION GAP 9 mEq/L (8-16); CARBON DIOXIDE 32 mEq/l (22-31); CHLORIDE 98 mEq/L (97-110); CREATININE 0.7 mg/dL (0.6-1.0); GLOMERULAR FILTRATION RATE > 60; GLUCOSE 114 mg/dL (70-100); INR 1.57 (0.83-1.16); MAGNESIUM 1.9 mg/dL (1.6-2.3); POTASSIUM 4.2 mEq/L (3.5-5.2); PROTIME(PATIENT) 18.8 SEC (12.0-15.0); SODIUM 139 mEq/L (134-144)
[2017-01-12 11:45] LABS: APTT 31.4 SEC (23.0-38.0)
[2017-01-12] MEDS ORDERED: PROPOFOL 200 MG/20 ML VIAL ONE (12:00)
== END 2017-01-12 13:30 | disposition home or self-care (01) ==
LOC: FCATH 10:30
PROVIDERS: ATTEND Internal Medicine Cardiovascular Disease
DX: Z53.09 Procedure and treatment not carried out because of other contraindication (principal); I48.91 Unspecified atrial fibrillation; J90 Pleural effusion, not elsewhere classified; Z95.2 Presence of prosthetic heart valve
CPT/HCPCS: J2704

== ENCOUNTER → 2017-01-12 | Outpatient (CLI) | payer OTHER, MEDICARE | LOC: BHFA 10:00 | PROVIDERS: ATTEND Internal Medicine Interventional Cardiology | DX: I48.91 Unspecified atrial fibrillation (principal) ==

== ENCOUNTER → 2017-01-16 | Outpatient (CLI) | payer OTHER, MEDICARE | LOC: CIMAGING 11:25 | PROVIDERS: ATTEND Thoracic Surgery (Cardiothoracic Vascular Surgery) | DX: Z09 Encounter for follow-up examination after completed treatment for conditions other than malignant neoplasm (principal); J90 Pleural effusion, not elsewhere classified; J98.4 Other disorders of lung; Z95.2 Presence of prosthetic heart valve | CPT/HCPCS: 71020-PO ==

== ENCOUNTER → 2017-01-19 | Outpatient (CLI) | payer OTHER, MEDICARE | LOC: FIMAGING 11:22 | PROVIDERS: ATTEND Thoracic Surgery (Cardiothoracic Vascular Surgery) | DX: J90 Pleural effusion, not elsewhere classified (principal) ==

== ENCOUNTER 2017-01-24 12:50 | Day surgery (SDC) | payer OTHER, MEDICARE ==
[2017-01-24] MEDS ORDERED: fentaNYL 100 MCG/2 ML INJ IVP ONE (12:59)
[2017-01-24] MEDS ORDERED: MIDAZOLAM 2 MG/2 ML VIAL IVP ONE (12:59)
[2017-01-24] MEDS ORDERED: BENZOCAINE UNIT DOSE SPRAY HURRICAINE MM ONE (12:59)
[2017-01-24] MEDS ORDERED: PROPOFOL 200 MG/20 ML VIAL IVP ONE (12:59)
[2017-01-24] MEDS ORDERED: NS 500 ML IV ONE (12:59)
[2017-01-24 14:01] LABS: INR 2.71 (0.83-1.16); PROTIME(PATIENT) 29.1 SEC (12.0-15.0)
[2017-01-24 14:02] LABS: APTT 38.6 SEC (23.0-38.0)
[2017-01-24 14:17] LABS: ANION GAP 9 mEq/L (8-16); CALCIUM 9.4 mg/dL (8.5-10.4); CARBON DIOXIDE 27 mEq/l (22-31); CHLORIDE 104 mEq/L (97-110); CREATININE 0.6 mg/dL (0.6-1.0); GLOMERULAR FILTRATION RATE > 60; GLUCOSE 102 mg/dL (70-100); POTASSIUM 4.4 mEq/L (3.5-5.2); SODIUM 140 mEq/L (134-144)
--- NOTE | 2017-01-24 14:21 | CPEKG ---
Heart Rate: 106 RR Interval: 566 P-R Interval: 152 QRSD Interval: 92 QT Interval: 368 QTC Interval: 489 P [place]: 17 QRS [place]: 64 T Wave [place]: -69 EKG Severity - ABNORMAL ECG - EKG Impression: ATRIAL FLUTTER WITH 2:1 BLOCK EKG Impression: REPOL ABNRM SUGGESTS ISCHEMIA, DIFFUSE LEADS EKG Impression: BORDERLINE PROLONGED QT INTERVAL Electronically Signed By: Scott Greenwood 25-Jan-2017 16:44:54
[2017-01-24] MEDS ORDERED: ATROPINE SULFATE 1 MG/10 ML SYR ONE (14:34)
[2017-01-24] MEDS ORDERED: PROPOFOL 200 MG/20 ML VIAL ONE ×2 (15:07→15:33)
--- NOTE | 2017-01-24 15:47 | CPEKG ---
Heart Rate: 89 RR Interval: 674 P-R Interval: 150 QRSD Interval: 96 QT Interval: 412 QTC Interval: 502 P [place]: 0 QRS [place]: 63 T Wave [place]: -55 EKG Severity - ABNORMAL ECG - EKG Impression: ATRIAL-SENSED VENTRICULAR-PACED COMPLEXES EKG Impression: NONSPECIFIC REPOL ABNORMALITY, DIFFUSE LEADS EKG Impression: PROLONGED QT INTERVAL EKG Impression: ATRIAL FLUTTER WITH 2:1 BLOCK Electronically Signed By: Scott Greenwood 25-Jan-2017 16:45:43
--- NOTE | 2017-01-24 16:01 | CPEKG ---
Heart Rate: 62 RR Interval: 968 P-R Interval: 240 QRSD Interval: 98 QT Interval: 452 QTC Interval: 459 P [place]: 35 QRS [place]: 62 T Wave [place]: 3 EKG Severity - ABNORMAL ECG - EKG Impression: ATRIAL-PACED COMPLEXES EKG Impression: FIRST DEGREE AV BLOCK EKG Impression: REPOL ABNRM SUGGESTS ISCHEMIA, LATERAL LEADS Electronically Signed By: Scott Greenwood 25-Jan-2017 16:46:04
--- NOTE | 2017-01-24 16:09 | PDTEE1 ---
KHADIJAH Cardioversion Procedure Procedure: Electrical Cardioversion, Transesophageal Echo Indications: Other (atrial flutter) Consent: Signed and in Chart Anticoagulation: Warfarin Procedural Details: After consent was obtained, patient was placed in the left lateral position. Hurricaine spray was used for local anesthetic, and anesthesia provided moderate sedations. KHADIJAH probe was placed without difficulty and standard views were obtained. PRELIMINARY REPORT: Left ventricular systolic ejection fraction was grossly normal (55%) Right ventricular systolic function was severely reduced There is slow flow in the atria (smoke was present) Oversewn appendage was noted with minimal flow noted Mild to moderate regurgitation through the bioprosthetic mitral valve Pacer lead to the RV noted through the tricuspid valve (annuloplasty ring noted) Aortic valve was not well visualized (prosthetic) Oversewn LAZARO with what appears to be thrombus Given the rhythm appreciated, and the oversew to the LAZARO, we proceeded with cardioversion No complications with the KHADIJAH Synchronized cardioversion attempt #1: 200J Results: Other (AV sequential pacing noted) Conclusions: Successful KHADIJAH Cardioversion Conclusion Comment: Will discuss the findings of the KHADIJAH with Dr. Demian Carl Patient Problems: Problems Problem Status Onset Atrial flutter Acute S/P ablation of atrial fibrillation Acute S/P mitral valve replacement with bioprosthetic valve Acute S/P tricuspid valve repair Acute H/O aortic valve replacement with tissue graft Chronic H/O ascending aorta repair Chronic
== END 2017-01-24 18:00 | disposition home or self-care (01) ==
LOC: FCATH 12:50
PROVIDERS: ATTEND Internal Medicine Cardiovascular Disease
PROC: 5A2204Z Restoration of Cardiac Rhythm, Single (ICD-10-PCS; principal; 2017-01-24)
PROC: B246ZZ4 Ultrasonography of Right and Left Heart, Transesophageal (ICD-10-PCS; principal; 2017-01-24)
DX: I48.92 Unspecified atrial flutter (principal); I34.0 Nonrheumatic mitral (valve) insufficiency; Z95.2 Presence of prosthetic heart valve; Z95.0 Presence of cardiac pacemaker; Z79.01 Long term (current) use of anticoagulants; Z98.890 Other specified postprocedural states
CPT/HCPCS: J0461; J2704

== ENCOUNTER → 2017-01-24 | Outpatient (CLI) | payer OTHER, MEDICARE | LOC: FLAB 09:54 | PROVIDERS: ATTEND Thoracic Surgery (Cardiothoracic Vascular Surgery) | DX: J90 Pleural effusion, not elsewhere classified (principal); I48.91 Unspecified atrial fibrillation; Z95.2 Presence of prosthetic heart valve; Z98.890 Other specified postprocedural states ==

== ENCOUNTER → 2017-01-24 | Outpatient (CLI) | payer OTHER, MEDICARE | LOC: BHFA 10:15 | PROVIDERS: ATTEND Thoracic Surgery (Cardiothoracic Vascular Surgery) | DX: Z95.2 Presence of prosthetic heart valve (principal); Z98.890 Other specified postprocedural states ==

== ENCOUNTER → 2017-02-01 | Outpatient (CLI) | payer OTHER, MEDICARE | LOC: FIMAGING 13:48 | PROVIDERS: ATTEND Internal Medicine Cardiovascular Disease | DX: R06.02 Shortness of breath (principal); Z95.0 Presence of cardiac pacemaker ==

== ENCOUNTER → 2017-03-10 | Outpatient (CLI) | payer OTHER, MEDICARE | LOC: BHFA 10:00 | PROVIDERS: ATTEND Internal Medicine Cardiovascular Disease | DX: I48.91 Unspecified atrial fibrillation (principal); I35.9 Nonrheumatic aortic valve disorder, unspecified; I34.9 Nonrheumatic mitral valve disorder, unspecified ==

== ENCOUNTER → 2017-03-17 | Outpatient (CLI) | payer OTHER, MEDICARE | LOC: BHFA 13:45 | PROVIDERS: ATTEND Internal Medicine Cardiovascular Disease | DX: I50.32 Chronic diastolic (congestive) heart failure (principal); N18.9 Chronic kidney disease, unspecified; Z95.2 Presence of prosthetic heart valve ==

== ENCOUNTER → 2017-08-30 | Outpatient (CLI) | payer OTHER, MEDICARE | LOC: FIMAGING 15:06 | PROVIDERS: ATTEND Obstetrics & Gynecology | DX: Z12.31 Encounter for screening mammogram for malignant neoplasm of breast (principal) | CPT/HCPCS: G0202 ==

== ENCOUNTER 2017-09-07 10:47 | Emergency (ER) | payer OTHER, MEDICARE ==
[2017-09-07] MEDS ORDERED: NS 500 ML IV ONE ×2 (10:49)
--- NOTE | 2017-09-07 10:57 | CPEKG ---
Heart Rate: 72 RR Interval: 833 P-R Interval: 156 QRSD Interval: 96 QT Interval: 408 QTC Interval: 447 P [place]: 73 QRS [place]: 74 T Wave [place]: 67 EKG Severity - BORDERLINE ECG - EKG Impression: SINUS RHYTHM EKG Impression: BORDERLINE T ABNORMALITIES, ANT-LAT LEADS Electronically Signed By: Mayte Harvey 07-Sep-2017 11:06:36
--- NOTE | 2017-09-07 10:57 | CPEKG ---
Heart Rate: 72 RR Interval: 833 P-R Interval: 156 QRSD Interval: 96 QT Interval: 408 QTC Interval: 447 P [place]: 73 QRS [place]: 74 T Wave [place]: 67 EKG Severity - BORDERLINE ECG - EKG Impression: SINUS RHYTHM EKG Impression: BORDERLINE T ABNORMALITIES, ANT-LAT LEADS Electronically Signed By: Mayte Harvey 07-Sep-2017 11:06:36
[2017-09-07 11:01] VITALS: TEMP 98
--- NOTE | 2017-09-07 11:04 | EDPHY ---
H & P Time Seen by Provider: 09/07/17 10:49 HPI/ROS: HPI Pain under scapula. 71-year-old female by private vehicle with her . This patient has a history of heart valve replacements and repair involving her mitral, tricuspid and aortic valves. She also has a pacemaker. She presents to the emergency department with complaint of right sided back pain just underneath her scapular angle, sudden onset at 8:00 a.m. this morning. She reports that she has had problems with sleeping involving sleep apnea and has been trying different positions was sleeping thinks that she may have induced this pain secondary to a sleeping position. She reports the pain is worse with deep breathing and movement. She denies any shortness of breath. She denies any chest pain associated. She took a 50 mg tramadol tablets this morning for the pain. ROS: Constitutional: No fever, no chills. No weakness. Eyes: No discharge. No changes in vision. ENT: No sore throat. No nasal congestion or rhinorrhea. Respiratory: No cough. No shortness of breath. Cardiac: No chest pain, no palpitations. Gastrointestinal: No abdominal pain, no vomiting, no diarrhea. Genitourinary: No hematuria. No dysuria or increased frequency with urination. Musculoskeletal: As above. No neck pain. No myalgias or arthralgias. Skin: No rashes. Neurological: No headache. No focal weakness or altered sensation. Past medical history: Open heart surgery for heart valve repairs and replacements as above. She is on Coumadin. Her cardiothoracic surgeon is Dr. Gallegos. She has a pacemaker as well. Her bonderizer operator is Dr. Chip Montilla as well as Dr. Gee. She denies any allergies to medications. Social history: Nonsmoker. No alcohol. Here with her . Physical Exam: General Appearance: Alert, she is mildly anxious but not in distress. This patient is responding to questions appropriately and in full sentences. This patient appears well-hydrated and well-nourished. Eyes: Pupils equal and round no pallor or injection. No lid edema, erythema or injection. Respiratory: There are no retractions, lungs are clear to auscultation with good air movement bilaterally. She does have point tenderness just below the scapular angle on the right side. No rash. No associated erythema, warmth, edema, ecchymosis. No bony step-off or other evidence of trauma on gross inspection of this area. No tachypnea. Cardiovascular: Regular rate and rhythm. Faint holosystolic murmur. Gastrointestinal: Abdomen is soft and nontender, no masses, bowel sounds normal. No focal tenderness at McBurney's point. No Corrales sign. Neurological: Motor sensory function is grossly intact. Cranial nerves are normal. Gait is normal. Skin: Warm and dry, no rashes. Musculoskeletal: Neck is supple and nontender. As above. Extremities are symmetrical. All joints range without pain or impingement. Psychiatric: No agitation. No depression. Database: EKG: EKG time is 10:56 a.m.; EKG shows a narrow complex normal sinus rhythm with a ventricular rate of 72. T-wave inversion noted in lead V2. The AR, QRS, QT intervals are within normal limits. There are no ST-T wave changes indicative of ischemic or injury pattern. No evidence of right heart strain. Interpreted by me. T-wave inversion seen in previous EKG from January of 2017. Imaging: Chest x-ray AP portable; pacemaker left upper chest wall, leads appear intact, the cardiac mediastinal silhouette is unremarkable. No evidence of infiltrate or pneumothorax. No acute cardiopulmonary disease process noted. Interpreted by me. Procedures: Emergency department course: IV placed. She was placed on a monitoring manager. Vital signs reviewed. EKG obtained and reviewed by myself. She is stating at this time that her tramadol is now starting to take effect and she is declining any pain medication. Patient's presentation is consistent with a musculoskeletal etiology of pain. However, given her history will work her up to evaluate for possible acute coronary syndrome versus pulmonary embolism versus aortic dissection. 11:00 a.m., patient complained of a muscle spasm like feeling in the area behind and below her right scapula. She was given 15 mcg of IV fentanyl. 11:30 a.m., patient re-evaluated. Discussed results of her EKG and chest x-ray as well as available blood work results. She is comfortable at this time. Declines any further pain medication. There was a delay in receiving this patient's troponin result secondary to technical problems here at the [facility]. 12:25 p.m., patient stating that her pain is coming back. The pain is positional. She was given 25 mcg of IV fentanyl. 1:00 p.m., patient re-evaluated. She is comfortable. She denies any significant pain. Results of troponin discussed with her. She feels comfortable going home and is asking for discharge. Her presentation is not consistent with acute coronary syndrome, aortic dissection or pulmonary embolism. Her workup has been reassuring. I will prescribe her Flexeril as a muscle relaxer. Return to emergency department precautions were thoroughly discussed with her. All of her questions were answered. She will follow up with her primary care physician for re-evaluation tomorrow. She was discharged in good condition with her . Differential Diagnosis: The differential diagnosis on this patient includes but is not limited to musculoskeletal thoracic pain. Aortic dissection, acute coronary syndrome, pulmonary embolism unlikely. This represents a partial list of diagnoses considered. These considerations are based on history, physical exam, past history, reassessment and diagnostic testing. Smoking Status: Former smoker Constitutional: Initial Vital Signs Temperature (C) 36.6 C 09/07/17 10:59 Heart Rate 75 09/07/17 10:59 Respiratory Rate 20 09/07/17 10:59 Blood Pressure 128/91 H 09/07/17 10:59 O2 Sat (%) 97 09/07/17 10:59 O2 Delivery Mode Room Air Allergies/Adverse Reactions: No Known Allergies Allergy (Verified 12/05/16 12:51) Home Medications: Medication Instructions Recorded ALPRAZOLAM 0.25 mg PO DAILY PRN 12/16/16 Aspirin EC [Aspirin EC 81 mg (*)] 81 mg PO DAILY 12/16/16 Atenolol 25 mg PO DAILY 12/16/16 Escitalopram Oxalate [Lexapro 10 10 mg PO DAILY 12/16/16 MG] Losartan Potassium [Cozaar 50 mg 50 mg PO DAILY 12/16/16 (*)] Warfarin Sodium [Coumadin 2.5MG 2.5 mg PO SUTUTHSA@1600 12/16/16 (*)] Warfarin Sodium [Coumadin 5MG (*)] 5 mg PO MWF@16 12/16/16 Acetaminophen [Tylenol 325mg (*)] 325 - 650 mg PO Q4HRS PRN #0 tab 12/28/16 Furosemide [Lasix 20 MG (*)] 20 mg PO DAILY #30 tab 12/28/16 Polyethylene Glycol 3350 [Miralax 17 gm PO DAILY PRN #30 pkt 12/28/16 17 gm (*)] traMADol [Ultram 50 mg (*)] 50 mg PO Q6-8PRN PRN #30 tab 12/28/16 Amiodarone HCl 200 mg PO BID 01/24/17 Cyclobenzaprine [Flexeril 10 MG 10 mg PO TID #9 tab 09/07/17 (*)] Medical Decision Making - Diagnostics Imaging Results: Imaging Impressions Chest X-Ray 09/07/17 10:49 Impression: No source for right chest pain identified. - Data Points Laboratory Results: Laboratory Results 09/07/17 11:00 09/07/17 11:00 09/07/17 09/07/17 09/07/17 11:00 11:00 11:00 WBC RBC Hgb Hct MCV MCH MCHC RDW Plt Count MPV Neut % (Auto) Lymph % (Auto) [place] % (Auto) Eos % (Auto) Baso % (Auto) Nucleat RBC Rel Count Absolute Neuts (auto) Absolute Lymphs (auto) Absolute Monos (auto) Absolute Eos (auto) Absolute Basos (auto) Absolute Nucleated RBC Immature Gran % Immature Gran # PT 23.1 SEC H SEC (12.0-15.0) INR 2.07 H (0.83-1.16) APTT 33.0 SEC SEC (23.0-38.0) D-Dimer 0.43 ug/mLFEU ug/mLFEU (0.00-0.50) Sodium 141 mEq/L mEq/L (134-144) Potassium 4.3 mEq/L mEq/L (3.5-5.2) Chloride 105 mEq/L mEq/L (97-110) Carbon Dioxide 22 mEq/l mEq/l (22-31) Anion Gap 14 mEq/L mEq/L (8-16) BUN 18 mg/dL mg/dL (7-23) Creatinine 1.2 mg/dL H mg/dL (0.6-1.0) Estimated GFR 45 Glucose 127 mg/dL H mg/dL (70-100) Calcium 10.6 mg/dL H mg/dL (8.5-10.4) Total Bilirubin 0.6 mg/dL mg/dL (0.1-1.4) Conjugated Bilirubin 0.2 mg/dL mg/dL (0.0-0.5) Unconjugated Bilirubin 0.4 mg/dL mg/dL (0.0-1.1) AST 25 IU/L IU/L (14-46) ALT 34 IU/L IU/L (9-52) Alkaline Phosphatase 78 IU/L IU/L (38-126) Creatine Kinase 112 IU/L IU/L (0-156) CK-MB (CK-2) Fraction 1.27 ng/mL ng/mL Cancelled (0.00-3.19) Troponin I < 0.012 ng/mL ng/mL Cancelled (0.000-0.034) Total Protein 7.5 g/dL g/dL (6.3-8.2) Albumin 4.4 g/dL g/dL (3.5-5.0) Lipase 257 IU/L IU/L (23-300) 09/07/17 11:00 WBC 6.50 10^3/uL 10^3/uL (3.80-9.50) RBC 4.48 10^6/uL 10^6/uL (4.18-5.33) Hgb 12.3 g/dL L g/dL (12.6-16.3) Hct 37.3 % L % (38.0-47.0) MCV 83.3 fL fL (81.5-99.8) MCH 27.5 pg L pg (27.9-34.1) MCHC 33.0 g/dL g/dL (32.4-36.7) RDW 13.0 % % (11.5-15.2) Plt Count 264 10^3/uL 10^3/uL (150-400) MPV 11.3 fL fL (8.7-11.7) Neut % (Auto) 37.1 % L % (39.3-74.2) Lymph % (Auto) 47.1 % H % (15.0-45.0) [place] % (Auto) 12.6 % % (4.5-13.0) Eos % (Auto) 2.2 % % (0.6-7.6) Baso % (Auto) 0.5 % % (0.3-1.7) Nucleat RBC Rel Count 0.0 % % (0.0-0.2) Absolute Neuts (auto) 2.42 10^3/uL 10^3/uL (1.70-6.50) Absolute Lymphs (auto) 3.06 10^3/uL H 10^3/uL (1.00-3.00) Absolute Monos (auto) 0.82 10^3/uL H 10^3/uL (0.30-0.80) Absolute Eos (auto) 0.14 10^3/uL 10^3/uL (0.03-0.40) Absolute Basos (auto) 0.03 10^3/uL 10^3/uL (0.02-0.10) Absolute Nucleated RBC 0.00 10^3/uL 10^3/uL (0-0.01) Immature Gran % 0.5 % % (0.0-1.1) Immature Gran # 0.03 10^3/uL 10^3/uL (0.00-0.10) PT INR APTT D-Dimer Sodium Potassium Chloride Carbon Dioxide Anion Gap BUN Creatinine Estimated GFR Glucose Calcium Total Bilirubin Conjugated Bilirubin Unconjugated Bilirubin AST ALT Alkaline Phosphatase Creatine Kinase CK-MB (CK-2) Fraction Troponin I Total Protein Albumin Lipase Medications Given: Discontinued Medications Fentanyl (Sublimaze) 15 mcg IVP EDNOW ONE Stop: 09/07/17 11:20 Last Admin: 09/07/17 11:28 Dose: 15 mcg Fentanyl (Sublimaze) 25 mcg IVP EDNOW ONE Stop: 09/07/17 12:28 Last Admin: 09/07/17 12:35 Dose: 25 mcg Sodium Chloride (Ns) 500 mls @ 1,000 mls/hr IV EDNOW ONE PRN Reason: Protocol Stop: 09/07/17 11:18 Last Admin: 09/07/17 12:47 Dose: Not Given Departure - Departure Disposition: Home, Routine, Self-Care Clinical Impression: Upper back pain on right side Condition: Good Instructions: Back Pain (ED) Additional Instructions: Read and follow provided instructions. Follow-up with your primary care physician tomorrow as discussed for re- evaluation. Take medication as prescribed. Avoid ibuprofen and other nonsteroidals secondary to your kidney function as discussed. Return to the emergency department for worsening pain, shortness of breath, difficulty breathing or other serious concerns. Referrals: Cha Bell MD [Primary Care Provider] - As per Instructions Prescriptions: Cyclobenzaprine [Flexeril 10 MG (*)] 10 mg PO TID #9 tab
[2017-09-07 11:08] LABS: PLATELET COUNT 264 10^3/uL (150-400)
[2017-09-07] MEDS ORDERED: fentaNYL 100 MCG/2 ML INJ IVP ONE ×4 (11:19→12:27)
[2017-09-07 11:21] LABS: INR 2.07 (0.83-1.16); PROTIME(PATIENT) 23.1 SEC (12.0-15.0)
[2017-09-07 12:37] VITALS: PULSE 69; RESP 18
[2017-09-07 13:08] VITALS: BP 112/70; O2SAT 92
== END 2017-09-07 13:06 | disposition home or self-care (01) ==
LOC: CED 10:47
DX: M54.6 Pain in thoracic spine (principal); Z95.0 Presence of cardiac pacemaker; Z87.891 Personal history of nicotine dependence; Z79.82 Long term (current) use of aspirin; Z79.01 Long term (current) use of anticoagulants
CPT/HCPCS: 71010; 93005; 96374; 96376; 99285; J3010; 80048-PO; 80076-PO; 82550-PO; 82553-PO; 83690-PO; 84484-PO; 85025-PO; 85378-PO; 85610-PO; 85730-PO

== ENCOUNTER → 2017-12-19 | Outpatient (CLI) | payer OTHER, MEDICARE | LOC: FIMAGING 12:23 | PROVIDERS: ATTEND Obstetrics & Gynecology | DX: Z13.820 Encounter for screening for osteoporosis (principal); M85.89 Other specified disorders of bone density and structure, multiple sites ==

== ENCOUNTER → 2018-03-02 | Outpatient (CLI) | payer OTHER, MEDICARE | LOC: CIMAGING 14:42 | PROVIDERS: ATTEND Family Medicine | DX: M79.641 Pain in right hand (principal) | CPT/HCPCS: 73120-PO ==

== ENCOUNTER → 2018-03-27 | Outpatient (CLI) | payer OTHER, MEDICARE | LOC: BHFA 10:00 | PROVIDERS: ATTEND Internal Medicine Cardiovascular Disease | DX: Z95.2 Presence of prosthetic heart valve (principal) ==